=== PATIENT | male | born 1960 | race African-American/Black ===

== ENCOUNTER 2016-06-18 18:16 | Emergency (ER) | payer SELFPAY ==
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
[2016-06-18 19:52] LABS: ABSOLUTE EOSINOPHILS # (AUTO) 0.3 10^3/uL (0.0-0.6); ABSOLUTE LYMPHOCYTES (AUTO) 1.5 10^3/uL (0.5-4.7); ABSOLUTE MONOCYTES (AUTO) 0.6 10^3/uL (0.1-1.4); ABSOLUTE NEUT (AUTO) 2.4 10^3/uL (1.7-8.2); BASOPHILS % (AUTO) 0.8 % (0-2); EOSINOPHILS % (AUTO) 5.5 % (0-6); HEMATOCRIT 46.5 % (37.9-51.0); HEMOGLOBIN 15.4 g/dL (13.5-17.0); HGB HCT DIFFERENCE -0.3; LYMPHOCYTES % (AUTO) 30.7 % (13-45); MEAN CORPUSCULAR HEMOGLOBIN 29.5 pg (27.0-33.4); MEAN CORPUSCULAR HGB CONC 33.2 g/dL (32.0-36.0); MEAN CORPUSCULAR VOLUME 89 fl (80-97); MONOCYTES % (AUTO) 12.2 % (3-13); RED BLOOD COUNT 5.23 10^6/uL (4.35-5.55); RED CELL DISTRIBUTION WIDTH 13.7 % (11.5-14.0); SEGMENTED NEUTROPHILS % (AUTO) 50.8 % (42-78); WHITE BLOOD COUNT 4.7 10^3/uL (4.0-10.5)
[2016-06-18 20:06] LABS: ALANINE AMINOTRANSFERASE 36 U/L (21-72); ALBUMIN 4.4 g/dL (3.5-5.0); ALKALINE PHOSPHATASE 90 U/L (38-126); ANION GAP 12 (5-19); ASPARTATE AMINO TRANSFERASE 50 U/L (17-59); BILIRUBIN,DIRECT 0.5 mg/dL (0.0-0.4); BILIRUBIN,TOTAL 0.8 mg/dL (0.2-1.3); BLOOD UREA NITROGEN 13 mg/dL (7-20); CALCIUM 9.9 mg/dL (8.4-10.2); CARBON DIOXIDE 28 mmol/L (22-30); CHLORIDE 106 mmol/L (98-107); CREATININE RESULT 1.05 mg/dL (0.52-1.25); GLUCOSE 103 mg/dL (75-110); POTASSIUM 4.4 mmol/L (3.6-5.0); SODIUM 146.3 mmol/L (137-145); TOTAL PROTEIN 8.3 g/dL (6.3-8.2)
[2016-06-18 20:18] LABS: CREATINE KINASE MB 0.76 ng/mL (<4.55)
[2016-06-18 20:19] LABS: TROPONIN I < 0.012 ng/mL
[2016-06-18 21:23] VITALS: BP 143/86
--- NOTE | 2016-06-19 08:13 | EKG REPORT ---
SEVERITY:- NORMAL ECG - SINUS RHYTHM : Confirmed by: Job Baez MD 19-Jun-2016 08:12:15
== END 2016-06-18 21:05 | disposition home or self-care (01) ==
LOC: ER 18:16
DX: M54.10 Radiculopathy, site unspecified (principal); D86.9 Sarcoidosis, unspecified; M54.2 Cervicalgia; Z87.828 Personal history of other (healed) physical injury and trauma
CPT/HCPCS: 36415; 71020; 72050; 80053; 82550; 82553; 84484; 85025; 93005; 93010; 99285

== ENCOUNTER 2016-12-02 12:50 | Emergency (ER) | payer SELFPAY ==
[2016-12-02 13:29] VITALS: BP 115/85
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
== END 2016-12-02 15:12 | disposition left against medical advice (07) ==
LOC: ER 12:50
DX: M25.512 Pain in left shoulder (principal); G89.29 Other chronic pain; M79.602 Pain in left arm; F17.210 Nicotine dependence, cigarettes, uncomplicated
CPT/HCPCS: 99281

== ENCOUNTER 2017-01-06 05:45 | Inpatient (IN) | payer OTHER ==
[2017-01-06 07:09] LABS: HEMATOCRIT 48.6 % (37.9-51.0); HEMOGLOBIN 16.2 g/dL (13.5-17.0); MEAN CORPUSCULAR HGB CONC 33.3 g/dL (32.0-36.0); MEAN CORPUSCULAR VOLUME 87 fl (80-97); RED BLOOD COUNT 5.58 10^6/uL (4.35-5.55); RED CELL DISTRIBUTION WIDTH 13.5 % (11.5-14.0); WHITE BLOOD COUNT 20.1 10^3/uL (4.0-10.5)
[2017-01-06 07:19] LABS: APPEARANCE,URINE SLIGHTLY-CLOUDY; BILIRUBIN,URINE NEGATIVE (NEGATIVE); GLUCOSE, URINE NEGATIVE (NEGATIVE); KETONES,URINE NEGATIVE (NEGATIVE); LEUKOCYTE ESTERASE,URINE SMALL (NEGATIVE); NITRITE,URINE NEGATIVE (NEGATIVE); PROTEIN,URINE 100 mg/dL (NEGATIVE); URINE SPECIFIC GRAVITY 1.014
[2017-01-06 07:26] LABS: ALANINE AMINOTRANSFERASE 34 U/L (21-72); ALKALINE PHOSPHATASE 131 U/L (38-126); ANION GAP 17 (5-19); ASPARTATE AMINO TRANSFERASE 57 U/L (17-59); BILIRUBIN,TOTAL 2.7 mg/dL (0.2-1.3); BLOOD UREA NITROGEN 16 mg/dL (7-20); CALCIUM 9.5 mg/dL (8.4-10.2); CARBON DIOXIDE 23 mmol/L (22-30); CHLORIDE 101 mmol/L (98-107); CREATINE KINASE 55 U/L (55-170); CREATININE RESULT 1.37 mg/dL (0.52-1.25); GLUCOSE 107 mg/dL (75-110); POTASSIUM 4.8 mmol/L (3.6-5.0); SODIUM 140.7 mmol/L (137-145)
[2017-01-06] MEDS ORDERED: NORMAL SALINE 1000 ML 1,000 ML IV ONE (07:29)
[2017-01-06] MEDS ORDERED: IBUPROFEN 800 MG TABLET PO ONE (07:30)
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
[2017-01-06 07:44] LABS: BASOPHILS % (MANUAL) 0 % (0-2); EOSINOPHILS % (MANUAL) 0 % (0-6); LYMPHOCYTES % (MANUAL) 8 % (13-45); TOTAL CELLS COUNTED 100
[2017-01-06 07:45] LABS: TOXIC GRANULATION SLIGHT
[2017-01-06 07:46] LABS: RBC MORPHOLOGY COMMENT NORMO-CYTIC/CHROMIC
[2017-01-06] MEDS ORDERED: CIPROFLOXACIN 400 MG/D5W RTU 400 MG/200 ML RTUPB IV ONE (07:57)
[2017-01-06 08:09] LABS: PROTHROMBIN TIME 14.7 SEC (11.4-15.4)
--- NOTE | 2017-01-06 08:46 | RADIOLOGY REPORT (SQ) ---
EXAM DESCRIPTION: CHEST PA/LAT COMPLETED DATE/TIME: 01/06/2017 8:25 am REASON FOR STUDY: wheezing, cough COMPARISON: Chest films 07/08/2014, 06/18/2016 EXAM PARAMETERS: NUMBER OF VIEWS: two views TECHNIQUE: Digital Frontal and Lateral radiographic views of the chest acquired. RADIATION DOSE: NA LIMITATIONS: none FINDINGS: LUNGS AND PLEURA: No opacities, masses or pneumothorax. No pleural effusion. MEDIASTINUM AND HILAR STRUCTURES: No masses or contour abnormalities. HEART AND VASCULAR STRUCTURES: Heart normal size. No evidence for failure. BONES: No acute findings. HARDWARE: None in the chest. OTHER: No other significant finding. IMPRESSION: NO SIGNIFICANT RADIOGRAPHIC FINDING IN THE CHEST. TECHNICAL DOCUMENTATION: JOB ID: [id number] [email or web address]- All Rights Reserved
[2017-01-06 09:04] LABS: URINE BARBITURATES SCREEN NEGATIVE; URINE METHADONE SCREEN NEGATIVE; URINE OPIATES LOW NEGATIVE; URINE PHENCYCLIDINE SCREEN NEGATIVE
--- NOTE | 2017-01-06 09:05 | EKG REPORT ---
SEVERITY:- ABNORMAL ECG - SINUS TACHYCARDIA BORDERLINE T ABNORMALITIES, INFERIOR LEADS : Confirmed by: Deloris Wang 06-Jan-2017 09:05:04
[2017-01-06] MEDS ORDERED: CEFTRIAXONE 1 GM/D5W RTU 1 GM/50 ML RTUPB IV ONE (09:28)
[2017-01-06] MEDS ORDERED: NORMAL SALINE 1000 ML 1,000 ML IV PRN (09:28)
[2017-01-06] MEDS ORDERED: ONDANSETRON HCL INJ/PF 4 MG/2 ML SDV IV PRN (09:31)
--- NOTE | 2017-01-06 10:38 | PDOC H&P ---
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 He presented with 2 days history of generalized body aches, fever chills, urinary urgency and diarrhea. He notes that he has been having diffuse abdominal pain associated with right flank pain. The pain is sometimes up to 8/10. He informs me that he got cocaine from a friend to try to reduce the pain. He denies chest pain, shortness of breath, headache, any focal neurologic deficits. In the emergency room, temperature was 102.2, heart rate 112, respiratory rate 25. Sodium was 140 with potassium of 4.8, creatinine 1.4. WBC 20.1 with a left shift noted. EKG showed sinus tachycardia, and chest x-ray did not show any acute infiltrate per my personal review. He has received IV fluid boluses, and has been started on IV ciprofloxacin. Past Medical History Past Medical History: Questionable history of sarcoidosis Pulmonary Medical History: Denies: Tuberculosis Neurological Medical History: Reports: Migraine GI Medical History: Reports: Gastroesophageal Reflux Disease Musculoskeltal Medical History: Reports: Arthritis Past Surgical History Past Surgical History: Reports: Orthopedic Surgery - left ankle Denies: Pacemaker Social History Information Source: Patient, Emergency Med Personnel Lives with: Parents Smoking Status: Current Some Day Smoker Frequency of Alcohol Use: Social Hx Recreational Drug Use: No - He notes that he did use cocaine recently to try to treat his abdominal ney Hx Prescription Drug Abuse: No - Advance Directive Resuscitation Status: Full Code Surrogate healthcare decision maker:: mother Family History Family History: Arthritis, CAD, DM, Hyperlipidemia, Hypertension. denies: COPD , CVA, Malignancy, Thyroid Disfunction Parental Family History Reviewed: Yes Children Family History Reviewed: No Sibling(s) Family History Reviewed.: No Medication/Allergy Home Medications: Famotidine [Pepcid 20 mg Tablet] 20 mg PO Q12 04/12/11 Methylprednisolone [Medrol 4 mg Dosepack 21 Tab/Pack] 4 mg PO ASDIR PRN Tramadol HCl [Ultram 50 mg Tablet] 25 mg PO ASDIR PRN 04/12/11 Oxycodone HCl/Acetaminophen [Percocet 5-325 mg Tablet] 1 - 2 tab PO ASDIR PRN # 20 tablet 11/06/11 Penicillin V Potassium [Penicillin Vk 250 Mg Tablet] 250 mg PO QID #40 tablet Cyclobenzaprine HCl [Flexeril 10 Mg Tablet] 10 mg PO TID PRN #15 tablet Hydrocodone Bit/Acetaminophen [Vicodin 5-500 mg Tablet] 1 - 2 tab PO ASDIR PRN # 15 tablet 12/15/11 Ibuprofen [Motrin 800 Mg Tablet] 800 mg PO Q6H #20 tablet 01/20/12 Doxycycline Hyclate 100 mg PO BID #14 capsule 07/08/14 Methylprednisolone [Medrol 4 mg Dosepack 21 Tab/Pack] 4 mg PO ASDIR PRN #21 tab.ds.pk 06/18/16 Oxycodone HCl/Acetaminophen [Percocet 5-325 mg Tablet] 1 - 2 tab PO ASDIR PRN # 15 tablet 06/18/16 Allergies/Adverse Reactions: No Known Allergies Allergy (Verified 12/02/16 13:27) Review of Systems All systems: reviewed and no additional remarkable complaints except as stated Physical Exam Vital Signs: Temp Pulse Resp BP Pulse Ox 102.2 F H 114 H 24 H 123/64 92 01/06/17 07:54 01/06/17 07:54 01/06/17 09:05 01/06/17 09:05 01/06/17 09:05 Intake & Output 01/05/17 01/06/17 01/07/17 06:59 06:59 06:59 Weight 61.2 kg General appearance: PRESENT: cooperative, disheveled, mild distress, thin - Cachectic Head exam: PRESENT: atraumatic, normocephalic Eye exam: PRESENT: conjunctiva pink, EOMI, PERRLA Mouth exam: PRESENT: moist, neck supple, tongue midline Teeth exam: PRESENT: poor dentation Neck exam: PRESENT: full ROM. ABSENT: carotid bruit, JVD, lymphadenopathy, meningismus, tenderness, thyromegaly, tracheal deviation, tracheostomy, other Respiratory exam: PRESENT: rhonchi, symmetrical, tachypnea. ABSENT: accessory muscle use, chest wall tenderness, clear to auscultation anila, crackles, decreased breath sounds, prolonged expiratory phas, rales, retraction, stridor, unlabored, wheezes, other Cardiovascular exam: PRESENT: RRR, +S1, +S2, tachycardia. ABSENT: bradycardia, clicks, diastolic murmur, gallop, irregular rhythm, rubs, systolic murmur, other Pulses: PRESENT: normal carotid pulses, normal radial pulses, normal dorsalis pedis pul GI/Abdominal exam: PRESENT: normal bowel sounds, soft, other - Right flank tenderness. ABSENT: ascites, diminished bowel sounds, distended, firm, guarding , hernia, hyperactive bowel sounds, hypoactive bowel sounds, mass, Rust's sign , organolmegaly, rebound, rigid, tenderness Rectal exam: PRESENT: deferred Extremities exam: PRESENT: full ROM. ABSENT: calf tenderness, clubbing, joint swelling, pedal edema, tenderness, +1 edema, +2 edema, other Musculoskeletal exam: PRESENT: ambulatory, full ROM, normal inspection Neurological exam: PRESENT: awake, oriented to person, oriented to place, oriented to time, oriented to situation, reflexes normal, CN II-XII grossly intact, other - Sick looking Psychiatric exam: PRESENT: anxious Skin exam: PRESENT: dry, normal color, warm Results Laboratory Results: 01/06/17 06:35 01/06/17 06:35 01/06/17 01/06/17 01/06/17 06:35 06:35 06:35 WBC 20.1 H RBC 5.58 H Hgb 16.2 Hct 48.6 MCV 87 MCH 29.0 MCHC 33.3 RDW 13.5 Plt Count 181 Seg Neutrophils % Not Reportable Lymphocytes % Not Reportable Monocytes % Not Reportable Eosinophils % Not Reportable Basophils % Not Reportable Absolute Neutrophils Not Reportable Absolute Lymphocytes Not Reportable Absolute Monocytes Not Reportable Absolute Eosinophils Not Reportable Absolute Basophils Not Reportable Sodium 140.7 Potassium 4.8 Chloride 101 Carbon Dioxide 23 Anion Gap 17 BUN 16 Creatinine 1.37 H Est GFR ( Amer) > 60 Est GFR (Non-Af Amer) 53 L Glucose 107 Lactic Acid Calcium 9.5 Total Bilirubin 2.7 H AST 57 ALT 34 Alkaline Phosphatase 131 H Total Protein 8.0 Albumin 4.0 Urine Color LEYLA Urine Appearance SLIGHTLY-CLOUDY Urine pH 6.0 Ur Specific [place] 1.014 Urine Protein 100 H Urine Glucose (UA) NEGATIVE Urine Ketones NEGATIVE Urine Blood SMALL H Urine Nitrite NEGATIVE Ur Leukocyte Esterase SMALL H Urine WBC (Auto) 113 Urine RBC (Auto) 14 01/06/17 08:20 WBC RBC Hgb Hct MCV MCH MCHC RDW Plt Count Seg Neutrophils % Lymphocytes % Monocytes % Eosinophils % Basophils % Absolute Neutrophils Absolute Lymphocytes Absolute Monocytes Absolute Eosinophils Absolute Basophils Sodium Potassium Chloride Carbon Dioxide Anion Gap BUN Creatinine Est GFR ( Amer) Est GFR (Non-Af Amer) Glucose Lactic Acid 1.3 Calcium Total Bilirubin AST ALT Alkaline Phosphatase Total Protein Albumin Urine Color Urine Appearance Urine pH Ur Specific [place] Urine Protein Urine Glucose (UA) Urine Ketones Urine Blood Urine Nitrite Ur Leukocyte Esterase Urine WBC (Auto) Urine RBC (Auto) 01/06/17 06:35 Creatine Kinase 55 Urine analysis revealed WBC 113 with small leukocyte esterase and negative nitrites Impressions: Chest X-Ray 01/06/17 07:30 IMPRESSION: NO SIGNIFICANT RADIOGRAPHIC FINDING IN THE CHEST. Status: Image reviewed by me Assessment & Plan - Diagnosis (1) Urinary tract infection Qualifiers: Urinary tract infection type: acute pyelonephritis Qualified Code(s): N10 - Acute pyelonephritis Is this a current diagnosis for this admission?: Yes Plan: Urinary tract infection with sepsis. Urine analysis consistent with UTI. Has significant right flank pain. Remains febrile with significant leukocytosis. Lactic acid within normal limits. Will start on IV ceftriaxone and follow blood cultures. Abdominal pelvic CT scan pending (2) Sepsis Qualifiers: Sepsis type: sepsis due to unspecified organism Qualified Code(s): A41.9 - Sepsis, unspecified organism Is this a current diagnosis for this admission?: Yes Plan: See above (3) Acute kidney injury Is this a current diagnosis for this admission?: Yes Plan: AK I, nonoliguric, likely due to sepsis. Continue IV fluid resuscitation (4) Abdominal pain Qualifiers: Abdominal location: generalized Qualified Code(s): R10.84 - Generalized abdominal pain Is this a current diagnosis for this admission?: Yes Plan: Diffuse abdominal pain associated with right flank tenderness. Likely due to pyelonephritis. Liver function tests, lipase amylase, and abdominal pelvic CT scan pending. Continue current pain management (5) Tobacco abuse Is this a current diagnosis for this admission?: Yes Plan: Smoking cessation counseling provided. Will provide nicotine replacement therapy (6) Cocaine abuse Is this a current diagnosis for this admission?: Yes Plan: Admits to using cocaine recently for abdominal pain. Further substance abuse strongly discouraged (7) DVT prophylaxis Is this a current diagnosis for this admission?: Yes Plan: Subcutaneous Lovenox - Time Time Spent: Greater than 70 Minutes - I have reviewed the diagnosis, prognosis, plan of care with the patient. I have addressed his concerns and answered his questions. He has expressed a clear understanding of this plan of care Smoking Cessation Education: 3 to 10 minutes Medications reviewed and adjusted accordingly: Yes Anticipated discharge: Home Within: within 48 hours - Inpatient Certification Based on my medical assessment, after consideration of the patient's comorbidities, presenting symptoms, or acuity I expect that the services needed warrant INPATIENT care.: Yes I certify that my determination is in accordance with my understanding of Medicare's requirements for reasonable and necessary INPATIENT services [42 CFR 412.3e].: Yes Medical Necessity: Need For IV Fluids, Need for IV Antibiotics, Risk of Complication if Not Cared For in Hospital - Plan Summary Plan Summary: We will admit for IV antibiotics and IV fluids.
[2017-01-06] MEDS ORDERED: MORPHINE SULFATE 10 MG/ML INJ IV PRN (10:41)
[2017-01-06 11:20] LABS: LIPASE 94.7 U/L (23-300)
[2017-01-06] MEDS: CYCLOBENZAPRINE HCL 10 MG TABLET PO PRN ×3 (11:31→17:16)
[2017-01-06] MEDS: ENOXAPARIN SODIUM INJ 40 MG/0.4 ML DISP.SYRIN SUBCUT SCH (11:32)
[2017-01-06] MEDS: OXYCODONE-ACETAMINOPHEN 5-325 MG TABLET PO PRN ×3 (11:32→23:13)
[2017-01-06 12:22] LABS: ADD HIVPANEL? NO; HIV (1 AND 2) ANTIBODY NEGATIVE (NEGATIVE)
[2017-01-06] MEDS ORDERED: INFLUENZA ADLT QUAD (36MOS+) 2017-18 VAC 0.5 ML SYR IM PRN (13:57)
--- NOTE | 2017-01-06 16:08 | RADIOLOGY REPORT (SQ) ---
EXAM DESCRIPTION: CT ABD/PELVIS WITH IV ORAL COMPLETED DATE/TIME: 01/06/2017 3:46 pm REASON FOR STUDY: abdominal pain COMPARISON: None. TECHNIQUE: CT scan of the abdomen and pelvis performed with intravenous and oral contrast using sulma fred scanning technique with dynamic intravenous contrast injection. Images reviewed with lung, soft t issue, and bone windows. Reconstructed coronal and sagittal MPR images reviewed. Delayed images for e valuation of the urinary system also acquired. All images stored on PACS. All CT scanners at this facility use dose modulation, iterative reconstruction, and/or weight based d osing when appropriate to reduce radiation dose to as low as reasonably achievable (ALARA). [facility]: Dose Right [facility]: CareDose [facility]: Dose Right [facility]: Teradose 4D [facility]: FClub CONTRAST TYPE AND DOSE: contrast/concentration: Isovue 370.00 mg/ml; Total Contrast Delivered: 66.0 ml; Total Saline Delivered: 42.0 ml RENAL FUNCTION: BUN 16 creatinine 1.4 RADIATION DOSE: Up-to-date CT equipment and radiation dose reduction techniques were employed. CTDIv ol: 2.8 - 3.2 mGy. DLP: 319 mGy-cm.. LIMITATIONS: Patient motion. Positioning. FINDINGS: LOWER CHEST: No significant findings. No nodules or infiltrates. LIVER: Normal size. No masses. No dilated ducts. SPLEEN: Normal size. No focal lesions. PANCREAS: No masses. No significant calcifications. No adjacent inflammation or peripancreatic fluid collections. Pancreatic duct not dilated. GALLBLADDER: Gallstones. No inflammatory changes to suggest cholecystitis. ADRENAL GLANDS: No significant masses or asymmetry. RIGHT KIDNEY AND URETER: No solid masses. No significant calcification. No hydronephrosis or hydroure ter. LEFT KIDNEY AND URETER: No solid masses. No significant calcification. No hydronephrosis or hydrouret er. AORTA AND VESSELS: No aneurysm. RETROPERITONEUM: Enlarged nodes measuring up to about 1 cm in short axis. BOWEL AND PERITONEAL CAVITY: Central mesenteric nodes measuring up to about 1.0 cm in short axis asso ciated with a swirling pattern of the vasculature in the SMA branches. No evidence of obstruction. No ascites or free air. APPENDIX: Not visualized. PELVIS: No significant masses. Normal bladder. No free fluid. ABDOMINAL WALL: Anterior pelvic hernia repair. BONES: No significant or acute findings. OTHER: No other significant finding. IMPRESSION: 1. Cholelithiasis. 2. Mild mesenteric and retroperitoneal adenopathy, nonspecific. 3. Swirling pattern of the vasculature in the SMA branches, possibly a normal variant. No other evid ence of internal hernia. TECHNICAL DOCUMENTATION: JOB ID: [id number] Quality ID # [id number]: Final reports with documentation of one or more dose reduction techniques (e.g., Au tomated exposure control, adjustment of the mA and/or kV according to patient size, use of iterative reconstruction technique) 2010 [employer]- All Rights Reserved
[2017-01-06] MEDS: FAMOTIDINE 20 MG TABLET PO SCH ×2 (17:08→22:28)
[2017-01-06] MEDS ORDERED: CYCLOBENZAPRINE HCL 10 MG TABLET PO PRN (21:37)
[2017-01-06] MEDS: IMIPENEM/CILASTATIN SODIUM 500 MG in NORMAL SALINE 100 ML IV SCH (22:28)
[2017-01-07] MEDS ORDERED: IMIPENEM/CILASTATIN SODIUM 1,000 MG in NORMAL SALINE 250 ML IV SCH ×2
[2017-01-07 05:09] LABS: HEMOGLOBIN 14.4 g/dL (13.5-17.0); HGB HCT DIFFERENCE -0.8; MEAN CORPUSCULAR HEMOGLOBIN 28.9 pg (27.0-33.4); MEAN CORPUSCULAR HGB CONC 32.8 g/dL (32.0-36.0); MEAN CORPUSCULAR VOLUME 88 fl (80-97); RED CELL DISTRIBUTION WIDTH 13.5 % (11.5-14.0); WHITE BLOOD COUNT 19.1 10^3/uL (4.0-10.5)
[2017-01-07] MEDS: ACETAMINOPHEN 325 MG TABLET PO PRN ×3 (05:25→17:26)
[2017-01-07] MEDS: IMIPENEM/CILASTATIN SODIUM 500 MG in NORMAL SALINE 100 ML IV SCH (05:25)
[2017-01-07] MEDS: OXYCODONE-ACETAMINOPHEN 5-325 MG TABLET PO PRN ×3 (05:25→17:26)
[2017-01-07 05:36] LABS: ALANINE AMINOTRANSFERASE 29 U/L (21-72); ALBUMIN 2.9 g/dL (3.5-5.0); ALKALINE PHOSPHATASE 88 U/L (38-126); ANION GAP 12 (5-19); ASPARTATE AMINO TRANSFERASE 45 U/L (17-59); BAND NEUTROPHILS % (MANUAL) 9 % (3-5); BASOPHILS % (MANUAL) 0 % (0-2); BILIRUBIN,DIRECT 1.6 mg/dL (0.0-0.4); BLOOD UREA NITROGEN 14 mg/dL (7-20); CALCIUM 8.4 mg/dL (8.4-10.2); CARBON DIOXIDE 22 mmol/L (22-30); CHLORIDE 108 mmol/L (98-107); CREATININE RESULT 1.14 mg/dL (0.52-1.25); EOSINOPHILS % (MANUAL) 0 % (0-6); GLUCOSE 91 mg/dL (75-110); LYMPHOCYTES % (MANUAL) 10 % (13-45); POTASSIUM 4.7 mmol/L (3.6-5.0); SODIUM 141.9 mmol/L (137-145); TOTAL CELLS COUNTED 100; TOTAL PROTEIN 6.4 g/dL (6.3-8.2)
[2017-01-07 05:37] LABS: POIKILOCYTOSIS SLIGHT; TEAR DROP CELLS SLIGHT; TOXIC GRANULATION SLIGHT; TOXIC VACUOLATION PRESENT
[2017-01-07] MEDS: ENOXAPARIN SODIUM INJ 40 MG/0.4 ML DISP.SYRIN SUBCUT SCH (09:52)
--- NOTE | 2017-01-07 09:54 | PDOC PROGRESS REPORT ---
Subjective Progress Note for:: 01/07/17 Subjective:: He is still experiencing chills at night. He also has back pain. He is able to eat. He is not nauseated. Does not report abdominal pain. Physical Exam Vital Signs: Temp Pulse Resp BP Pulse Ox 101.8 F H 102 H 19 92/47 L 94 01/07/17 07:46 01/07/17 07:46 01/07/17 07:46 01/07/17 07:46 01/07/17 07:46 Intake & Output 01/06/17 01/07/17 01/08/17 06:59 06:59 06:59 Intake Total 2916 Output Total 1100 Balance 1816 General appearance: PRESENT: no acute distress, cooperative, thin Head exam: PRESENT: atraumatic, normocephalic Eye exam: PRESENT: EOMI, PERRLA Mouth exam: PRESENT: moist, tongue midline Neck exam: ABSENT: carotid bruit, JVD, lymphadenopathy, thyromegaly Respiratory exam: PRESENT: clear to auscultation anila. ABSENT: rales, rhonchi, wheezes Cardiovascular exam: PRESENT: RRR. ABSENT: diastolic murmur, rubs, systolic murmur GI/Abdominal exam: PRESENT: normal bowel sounds, soft. ABSENT: distended, guarding, mass, organolmegaly, rebound, tenderness Rectal exam: PRESENT: deferred Extremities exam: PRESENT: full ROM. ABSENT: calf tenderness, clubbing, pedal edema Musculoskeletal exam: PRESENT: ambulatory Neurological exam: PRESENT: alert, awake, oriented to person, oriented to place , oriented to time, oriented to situation, CN II-XII grossly intact. ABSENT: motor sensory deficit Psychiatric exam: PRESENT: appropriate affect, normal mood. ABSENT: homicidal ideation, suicidal ideation Skin exam: PRESENT: dry, intact, warm. ABSENT: cyanosis, rash Results Laboratory Results: 01/07/17 04:26 01/07/17 04:26 01/07/17 01/07/17 04:26 04:26 WBC 19.1 H RBC 5.00 Hgb 14.4 Hct 44.0 MCV 88 MCH 28.9 MCHC 32.8 RDW 13.5 Plt Count 149 L Seg Neutrophils % Not Reportable Lymphocytes % Not Reportable Monocytes % Not Reportable Eosinophils % Not Reportable Basophils % Not Reportable Absolute Neutrophils Not Reportable Absolute Lymphocytes Not Reportable Absolute Monocytes Not Reportable Absolute Eosinophils Not Reportable Absolute Basophils Not Reportable Sodium 141.9 Potassium 4.7 Chloride 108 H Carbon Dioxide 22 Anion Gap 12 BUN 14 Creatinine 1.14 Est GFR ( Amer) > 60 Est GFR (Non-Af Amer) > 60 Glucose 91 Calcium 8.4 Total Bilirubin 2.0 H AST 45 ALT 29 Alkaline Phosphatase 88 Total Protein 6.4 Albumin 2.9 L 01/06/17 01/06/17 01/06/17 10:56 16:20 22:37 Troponin I < 0.012 < 0.012 < 0.012 Impressions: Chest X-Ray 01/06/17 07:30 IMPRESSION: NO SIGNIFICANT RADIOGRAPHIC FINDING IN THE CHEST. Abdomen/Pelvis CT 01/06/17 10:39 IMPRESSION: 1. Cholelithiasis. 2. Mild mesenteric and retroperitoneal adenopathy, nonspecific. 3. Swirling pattern of the vasculature in the SMA branches, possibly a normal variant. No other evidence of internal hernia. Assessment & Plan - Diagnosis (1) Acute kidney injury Is this a current diagnosis for this admission?: Yes Plan: This was most likely due to volume depletion. He has been treated with IV fluids, and now his LATOYA has resolved. (2) Sepsis Qualifiers: Sepsis type: sepsis due to unspecified organism Qualified Code(s): A41.9 - Sepsis, unspecified organism Is this a current diagnosis for this admission?: Yes Plan: Due to UTI/pyelonephritis. His vital signs have normalized. He still has an elevated white blood cell count. His blood cultures are growing gram-negative rods. Identification and sensitivities are pending. Continue ceftriaxone. (3) Acute pyelonephritis Is this a current diagnosis for this admission?: Yes Plan: He has uncomplicated polynephritis. This is based on his urinary tract infection, plus fever and back pain. CT abdomen did not show any gross abnormalities. Incidentally, gallstones were found. (4) Gram-negative bacteremia Plan: Most likely due to the UTI/pyelonephritis that he has. Identification and sensitivities are pending. (5) Cocaine abuse Is this a current diagnosis for this admission?: Yes Plan: Encouraged to abstain. (6) Tobacco abuse Is this a current diagnosis for this admission?: Yes Plan: Encourage patient to quit. (7) Cholelithiasis Qualifiers: Cholelithiasis location: gallbladder Cholecystitis presence: without cholecystitis Biliary obstruction: without biliary obstruction Qualified Code(s): K80.20 - Calculus of gallbladder without cholecystitis without obstruction Plan: Incidental finding seen on CT scan of his abdomen. Currently he is asymptomatic. - Time Time Spent with patient: 25-34 minutes Smoking Cessation Education: 3 to 10 minutes Medications reviewed and adjusted accordingly: Yes Anticipated discharge: Home Within: within 24 hours
[2017-01-07] MEDS ORDERED: ONDANSETRON HCL INJ/PF 4 MG/2 ML SDV IV PRN (10:00)
[2017-01-07] MEDS: FAMOTIDINE 20 MG TABLET PO SCH ×2 (10:22→22:58)
[2017-01-07] MEDS: CEFTRIAXONE 1 GM/D5W RTU 1 GM/50 ML RTUPB IV SCH (10:22)
[2017-01-07] MEDS: NICOTINE 21 MG/24 HR PATCH.TD24 TD SCH (10:23)
[2017-01-08] MEDS: OXYCODONE-ACETAMINOPHEN 5-325 MG TABLET PO PRN ×4 (00:23→23:26)
[2017-01-08] MEDS: ACETAMINOPHEN 325 MG TABLET PO PRN ×3 (00:24→14:11)
[2017-01-08 06:23] LABS: HEMATOCRIT 41.9 % (37.9-51.0); HGB HCT DIFFERENCE 0.1; MEAN CORPUSCULAR HEMOGLOBIN 29.2 pg (27.0-33.4); MEAN CORPUSCULAR HGB CONC 33.5 g/dL (32.0-36.0); MEAN CORPUSCULAR VOLUME 87 fl (80-97); RED CELL DISTRIBUTION WIDTH 13.8 % (11.5-14.0); WHITE BLOOD COUNT 10.3 10^3/uL (4.0-10.5)
[2017-01-08 06:47] LABS: ALANINE AMINOTRANSFERASE 30 U/L (21-72); ALBUMIN 2.7 g/dL (3.5-5.0); ALKALINE PHOSPHATASE 97 U/L (38-126); ANION GAP 11 (5-19); ASPARTATE AMINO TRANSFERASE 44 U/L (17-59); BILIRUBIN,DIRECT 1.2 mg/dL (0.0-0.4); BILIRUBIN,TOTAL 1.2 mg/dL (0.2-1.3); BLOOD UREA NITROGEN 13 mg/dL (7-20); CALCIUM 8.5 mg/dL (8.4-10.2); CARBON DIOXIDE 25 mmol/L (22-30); CHLORIDE 106 mmol/L (98-107); CREATININE RESULT 1.12 mg/dL (0.52-1.25); GLUCOSE 97 mg/dL (75-110); POTASSIUM 4.5 mmol/L (3.6-5.0); SODIUM 142.3 mmol/L (137-145); TOTAL PROTEIN 6.2 g/dL (6.3-8.2)
[2017-01-08 06:57] LABS: BAND NEUTROPHILS % (MANUAL) 9 % (3-5); BASOPHILS % (MANUAL) 0 % (0-2); EOSINOPHILS % (MANUAL) 2 % (0-6); LYMPHOCYTES % (MANUAL) 16 % (13-45); TOTAL CELLS COUNTED 100
[2017-01-08 06:58] LABS: BURR CELLS SLIGHT; POIKILOCYTOSIS SLIGHT; TOXIC GRANULATION SLIGHT; TOXIC VACUOLATION PRESENT
[2017-01-08] MEDS: NICOTINE 21 MG/24 HR PATCH.TD24 TD SCH (09:02)
[2017-01-08] MEDS: ENOXAPARIN SODIUM INJ 40 MG/0.4 ML DISP.SYRIN SUBCUT SCH (09:03)
[2017-01-08] MEDS: CEFTRIAXONE 1 GM/D5W RTU 1 GM/50 ML RTUPB IV SCH (09:12)
[2017-01-08] MEDS: FAMOTIDINE 20 MG TABLET PO SCH ×2 (09:15→21:46)
--- NOTE | 2017-01-08 16:29 | PDOC PROGRESS REPORT ---
Subjective Progress Note for:: 01/08/17 Subjective:: He complains of flank pain. Overall, he still feels miserable. Physical Exam Vital Signs: Temp Pulse Resp BP Pulse Ox 99.2 F 107 H 18 101/66 97 01/08/17 16:14 01/08/17 16:14 01/08/17 16:14 01/08/17 16:14 01/08/17 16:14 Intake & Output 01/07/17 01/08/17 01/09/17 06:59 06:59 06:59 Intake Total 2916 3805 Output Total 1100 2105 Balance 1816 1700 Weight 69.1 kg General appearance: PRESENT: no acute distress, well-developed, well-nourished Head exam: PRESENT: atraumatic, normocephalic Respiratory exam: PRESENT: clear to auscultation anila. ABSENT: rales, rhonchi, wheezes Cardiovascular exam: PRESENT: RRR. ABSENT: diastolic murmur, rubs, systolic murmur GI/Abdominal exam: PRESENT: normal bowel sounds, soft. ABSENT: distended, guarding, mass, organolmegaly, rebound, tenderness Musculoskeletal exam: PRESENT: other - Mild right costophrenic tenderness Neurological exam: PRESENT: alert, awake, oriented to person, oriented to place , oriented to time, oriented to situation, CN II-XII grossly intact. ABSENT: motor sensory deficit Skin exam: PRESENT: dry, intact, warm. ABSENT: cyanosis, rash Results Laboratory Results: 01/08/17 05:18 01/08/17 05:18 01/08/17 01/08/17 05:18 05:18 WBC 10.3 RBC 4.80 Hgb 14.0 Hct 41.9 MCV 87 MCH 29.2 MCHC 33.5 RDW 13.8 Plt Count 131 L Seg Neutrophils % Not Reportable Lymphocytes % Not Reportable Monocytes % Not Reportable Eosinophils % Not Reportable Basophils % Not Reportable Absolute Neutrophils Not Reportable Absolute Lymphocytes Not Reportable Absolute Monocytes Not Reportable Absolute Eosinophils Not Reportable Absolute Basophils Not Reportable Sodium 142.3 Potassium 4.5 Chloride 106 Carbon Dioxide 25 Anion Gap 11 BUN 13 Creatinine 1.12 Est GFR ( Amer) > 60 Est GFR (Non-Af Amer) > 60 Glucose 97 Calcium 8.5 Total Bilirubin 1.2 AST 44 ALT 30 Alkaline Phosphatase 97 Total Protein 6.2 L Albumin 2.7 L 01/06/17 01/06/17 01/06/17 10:56 16:20 22:37 Troponin I < 0.012 < 0.012 < 0.012 Impressions: Chest X-Ray 01/06/17 07:30 IMPRESSION: NO SIGNIFICANT RADIOGRAPHIC FINDING IN THE CHEST. Abdomen/Pelvis CT 01/06/17 10:39 IMPRESSION: 1. Cholelithiasis. 2. Mild mesenteric and retroperitoneal adenopathy, nonspecific. 3. Swirling pattern of the vasculature in the SMA branches, possibly a normal variant. No other evidence of internal hernia. Assessment & Plan - Diagnosis (1) Acute kidney injury Is this a current diagnosis for this admission?: Yes Plan: This was most likely due to volume depletion. He has been treated with IV fluids, and now his LATOYA has resolved. (2) Sepsis Qualifiers: Sepsis type: Escherichia coli Qualified Code(s): A41.51 - Sepsis due to Escherichia coli [E. coli] Is this a current diagnosis for this admission?: Yes Plan: Due to UTI/pyelonephritis. His vital signs have normalized. His white count normalized. But he is still spiking fevers. His blood cultures are growing E. coli. Continue ceftriaxone. (3) Acute pyelonephritis Is this a current diagnosis for this admission?: Yes Plan: He has uncomplicated polynephritis. This is based on his urinary tract infection, plus fever and back pain. CT abdomen did not show any gross abnormalities. Incidentally, gallstones were found. Cultures are growing E. coli. His white count has normalized. However, he continues to spike fevers. Continue ceftriaxone for now. (4) Gram-negative bacteremia Plan: Most likely due to the UTI/pyelonephritis that he has. Cultures are now growing E. coli. in both urine and blood. (5) Cocaine abuse Is this a current diagnosis for this admission?: Yes Plan: Encouraged to abstain. (6) Tobacco abuse Is this a current diagnosis for this admission?: Yes Plan: Encourage patient to quit. (7) Cholelithiasis Qualifiers: Cholelithiasis location: gallbladder Cholecystitis presence: without cholecystitis Biliary obstruction: without biliary obstruction Qualified Code(s): K80.20 - Calculus of gallbladder without cholecystitis without obstruction Plan: Incidental finding seen on CT scan of his abdomen. Currently he is asymptomatic. - Time Time Spent with patient: 15-24 minutes Medications reviewed and adjusted accordingly: Yes Anticipated discharge: Home - Inpatient Certification Based on my medical assessment, after consideration of the patient's comorbidities, presenting symptoms, or acuity I expect that the services needed warrant INPATIENT care.: Yes I certify that my determination is in accordance with my understanding of Medicare's requirements for reasonable and necessary INPATIENT services [42 CFR 412.3e].: Yes Medical Necessity: Need for IV Antibiotics
[2017-01-09] MEDS: OXYCODONE-ACETAMINOPHEN 5-325 MG TABLET PO PRN ×3 (08:01→22:39)
[2017-01-09] MEDS: NICOTINE 21 MG/24 HR PATCH.TD24 TD SCH (09:54)
[2017-01-09] MEDS: CEFTRIAXONE 1 GM/D5W RTU 1 GM/50 ML RTUPB IV SCH (09:54)
[2017-01-09] MEDS: ENOXAPARIN SODIUM INJ 40 MG/0.4 ML DISP.SYRIN SUBCUT SCH (09:55)
[2017-01-09] MEDS: FAMOTIDINE 20 MG TABLET PO SCH ×2 (09:55→21:04)
[2017-01-09] MEDS: ACETAMINOPHEN 325 MG TABLET PO PRN (10:03)
--- NOTE | 2017-01-09 15:23 | PROGRESS NOTE E ---
Progress Note NAME: LEOPOLDO LEE : 1960 AGE: 56Y DATE: 01/09/2017 ROOM: 435 SUBJECTIVE: The patient is a 56-year-old male who has a past medical history of cocaine abuse, tobacco abuse , admitted with sepsis due to acute pyelonephritis. He is on antibiotics now, feeling better, but still complaining of pain. OBJECTIVE: GENERAL: The patient is lying in bed, not in distress. VITAL SIGNS: Blood pressure is 152/81, temperature 102, respiratory rate 18, saturation 96%. HEENT: Head normocephalic, atraumatic. Pupils round, reactive to light and accommodation bilaterally. Extraocular movements intact. Ears: Tympanic membranes intact bilaterally. No discharge from the ear. No discharge from the nose. NECK: Supple, no increased JVD, no thyromegaly, no lymphadenopathy. CARDIOVASCULAR: Normal S1, S2. Regular rate and rhythm. No murmur, no gallops. RESPIRATORY: Lungs clear. ABDOMEN: Soft. MUSCULOSKELETAL: No edema. NEUROLOGIC: Awake, alert. SKIN: No rash. LABORATORY DATA: White blood count is 10, hemoglobin 14. Sodium 142, potassium 4.5, creatinine 1.1. ASSESSMENT: 1. SEPSIS SECONDARY TO PYELONEPHRITIS ON CEFTRIAXONE. 2. ACUTE KIDNEY INJURY, RESOLVED. 3. SEPSIS SUBACUTE SECONDARY TO PYELONEPHRITIS FROM UTI. NEGATIVE BACTEREMIA. Continue ceftriaxone. 4. COCAINE ABUSE. MEDICAL NECESSITY: The patient needs IV antibiotics. I will change ceftriaxone to Zosyn. DICTATING PHYSICIAN: MEHNAZ SUE M.D. [id number] ACEY#: [id number] ID: [id number] JOB#: [id number] ACCT: [id number] cc: > MTDD
[2017-01-09] MEDS: PIPERACILLIN SODIUM/TAZOBACTAM 3.375 GM in NORMAL SALINE 100 ML IV SCH (18:01)
[2017-01-10] MEDS: PIPERACILLIN SODIUM/TAZOBACTAM 3.375 GM in NORMAL SALINE 100 ML IV SCH ×5 (00:48→23:30)
[2017-01-10] MEDS: OXYCODONE-ACETAMINOPHEN 5-325 MG TABLET PO PRN ×3 (06:39→20:21)
[2017-01-10] MEDS: NICOTINE 21 MG/24 HR PATCH.TD24 TD SCH (10:28)
[2017-01-10] MEDS: FAMOTIDINE 20 MG TABLET PO SCH ×2 (10:28→21:08)
[2017-01-10] MEDS: ENOXAPARIN SODIUM INJ 40 MG/0.4 ML DISP.SYRIN SUBCUT SCH (10:32)
--- NOTE | 2017-01-10 12:13 | PROGRESS NOTE E ---
Progress Note NAME: LEOPOLDO LEE : 1960 AGE: 56Y DATE: 01/10/2017 ROOM: 435 SUBJECTIVE: The patient is a pleasant 56-year-old male who has a past medical history of cocaine abuse, tobacco abuse. Admitted with pyelonephritis and sepsis. He still continues to have fever despite he is on antibiotic. He is on now Zosyn. OBJECTIVE: GENERAL: The patient is lying in bed. Not in distress. VITALS SIGNS: Temperature maximum is 101, heart rate 89, saturation is 97% on room air, blood pressure is 104/62. HEENT: Head normocephalic, atraumatic. Pupils round and reactive to light and accommodation bilaterally. Extraocular movements intact. Ears: Tympanic membranes intact bilaterally. No discharge from the ears. No discharge from the nose. NECK: Supple. No increased JVD. No thyromegaly. No lymphadenopathy. CARDIOVASCULAR: Normal S1, S2. Regular rate and rhythm. No murmur. No gallop. RESPIRATORY: Lungs are clear. ABDOMEN: Soft and nontender. MUSCULOSKELETAL: No edema. NEUROLOGIC: Awake, alert. SKIN: No rash. LABORATORY: White blood count is 10, hemoglobin is 14, hematocrit is 41. Creatinine is 1.1, sodium is 142. ASSESSMENT: 1. SEPSIS SECONDARY TO PYELONEPHRITIS. Continue Zosyn. 2. ACUTE KIDNEY INJURY RESOLVED. 3. SEPSIS SECONDARY TO PYELONEPHRITIS FROM UTI. Gram negative bacteremia. On Unasyn and Zosyn. 4. COCAINE ABUSE. PLAN: Continue IV antibiotics. We will order echocardiogram. MEDICAL NECESSITY: The patient is on IV antibiotics. DICTATING PHYSICIAN: MEHNAZ SUE M.D. [id number] PHY#: [id number] ID: [id number] JOB#: [id number] ACCT: [id number] cc: >
--- NOTE | 2017-01-10 16:16 | XCELERA REPORT ---
[address] [address] Transthoracic Echocardiogram Report Name: LEOPOLDO LEE Age: 56 yrs Gender: Male : 1960 Patient Status: Inpatient Patient Location: [address] [place] [address] Study Date: 01/10/2017 03:12 PM Height: 66 in Weight: 152 lb BSA: 1.8 m2 Procedure: A complete two-dimensional transthoracic echocardiogram was performed (2D, M-mode, spectral and color flow Doppler). The study was technically adequate with some images being suboptimal in quality. [facility] Ordering Physician: MEHNAZ SUE Performed By: Halina Hampton Interpretation Summary The left ventricular ejection fraction is normal. There is borderline concentric left ventricular hypertrophy. Doppler measurements suggest pseudonormalized left ventricular relaxation, which is associated with grade II/IV or mild to moderate diastolic dysfunction The left ventricle is grossly normal size. Wall motion cannot be accurately commented on, but no definite regional wall motion abnormalities noted. The right ventricle is borderline dilated. The right ventricular systolic function is normal. The right atrium is mildly dilated. The left atrial size is normal. There is a trace amount of mitral regurgitation There is no mitral valve stenosis. No aortic regurgitation is present. There is no aortic valve stenosis There is a trace to mild amount of tricuspid regurgitation There is mild pulmonary hypertension by echo Right ventricular systolic pressure is estimated to be elevated at 30- 40mmHg. The aortic root is not well visualized but is probably normal size. The inferior vena cava appeared normal and decreased > 50% with respiration (RAP 5-10 mmHg) There is no pericardial effusion. No definite vegetations noted but if clinical suspicion is high, then consider FRANK and multiple blood cultures. MMode/2D Measurements & Calculations RVDd: 2.8 cm LVIDd: 4.7 cm FS: 37.3 % Ao root diam: 3.1 cm IVSd: 0.93 cm LVIDs: 3.0 cm EDV(Teich): 104.7 ml LVPWd: 0.87 cm ESV(Teich): 34.3 ml Ao root area: 7.6 cm2 EF(Teich): 67.2 % LA dimension: 3.3 cm Doppler Measurements & Calculations MV E max quinn: MV P1/2t max quinn: Ao V2 max: LV V1 max P.9 cm/sec 80.9 cm/sec 90.3 cm/sec 2.9 mmHg MV A max quinn: MV P1/2t: 74.0 msec Ao max PG: LV V1 max: 70.6 cm/sec 3.3 mmHg 83.9 cm/sec MV E/A: 1.1 MVA(P1/2t): 3.0 cm2 MV dec slope: 320.4 cm/sec2 TR max quinn: 272.8 cm/sec TR max P.8 mmHg Left Ventricle The left ventricle is grossly normal size. There is borderline concentric left ventricular hypertrophy. The left ventricular ejection fraction is normal. Doppler measurements suggest pseudonormalized left ventricular relaxation, which is associated with grade II/IV or mild to moderate diastolic dysfunction. Wall motion cannot be accurately commented on, but no definite regional wall motion abnormalities noted. Right Ventricle The right ventricle is borderline dilated. There is normal right ventricular wall thickness. The right ventricular systolic function is normal. Atria The right atrium is mildly dilated. The left atrial size is normal. Interarterial septum not well visualized and not well dopplered. Cannot comment on ASD/PFO presence. Mitral Valve The mitral valve is grossly normal. There is no mitral valve stenosis. There is a trace amount of mitral regurgitation. Aortic Valve The aortic valve is grossly normal. There is no aortic valve stenosis. No aortic regurgitation is present. Tricuspid Valve The tricuspid valve is not well visualized, but is grossly normal. There is no tricuspid stenosis. There is a trace to mild amount of tricuspid regurgitation. There is mild pulmonary hypertension by echo. Right ventricular systolic pressure is estimated to be elevated at 30-40mmHg. Pulmonic Valve The pulmonic valve is not well visualized. Great Vessels The aortic root is not well visualized but is probably normal size. The inferior vena cava appeared normal and decreased > 50% with respiration (RAP 5-10 mmHg). Effusions There is no pericardial effusion. Incidental Findings No definite vegetations noted but if clinical suspicion is high, then consider FRANK and multiple blood cultures. : MEHNAZ SUE > Deloris Wang
[2017-01-11] MEDS: PIPERACILLIN SODIUM/TAZOBACTAM 3.375 GM in NORMAL SALINE 100 ML IV SCH ×4 (05:52→23:38)
[2017-01-11] MEDS: NICOTINE 21 MG/24 HR PATCH.TD24 TD SCH (09:47)
[2017-01-11] MEDS: ENOXAPARIN SODIUM INJ 40 MG/0.4 ML DISP.SYRIN SUBCUT SCH (09:47)
[2017-01-11] MEDS: FAMOTIDINE 20 MG TABLET PO SCH ×2 (09:47→21:18)
--- NOTE | 2017-01-11 11:03 | PROGRESS NOTE E ---
Progress Note NAME: LEOPOLDO LEE : 1960 AGE: 56Y DATE: 01/11/2017 ROOM: 435 SUBJECTIVE: The patient is a 56-year-old male who has a past medical history of cocaine abuse, tobacco abuse, admitted with pyelonephritis and sepsis. He is on antibiotic with Zosyn. He is feeling better. He continues to have a fever. Echocardiogram done yesterday did not show any vegetation. OBJECTIVE: GENERAL: The patient is lying in bed. Not in distress, looks well. VITALS SIGNS: Temperature 100.8, heart rate 106, blood pressure 113/76, respiratory 20. HEENT: Head normocephalic, atraumatic. Pupils round and reactive to light and accommodation bilaterally. Extraocular movements intact. Ears: Tympanic membranes intact bilaterally. No discharge from the ears. No discharge from the nose. NECK: Supple. No increased JVD. No thyromegaly. No lymphadenopathy. CARDIOVASCULAR: Normal S1, S2. Regular rate and rhythm. No murmur. No gallop. RESPIRATORY: Lungs clear. ABDOMEN: Soft, nontender. MUSCULOSKELETAL: No edema. NEUROLOGIC: Awake, alert. SKIN: No rash. LABORATORY: White blood count 10.3, hemoglobin 14, hematocrit 42. Sodium 142, potassium 4.5, chloride 106. ASSESSMENT: 1. SEPSIS SECONDARY TO PYELONEPHRITIS, continue Zosyn. 2. ACUTE KIDNEY INJURY RESOLVED. 3. SEPSIS SECONDARY TO PYELONEPHRITIS FROM URINARY TRACT INFECTION, GRAM-NEGATIVE BACTEREMIA ON ZOSYN. 4. COCAINE ABUSE. PLAN: We will continue IV antibiotics on Zosyn. Echocardiogram ordered was unremarkable. The patient continues to have fever. We will review CT scan of the abdomen with IV contrast for abdomen and pelvis. Laboratory tomorrow morning. MEDICAL NECESSITY: IV antibiotics. DICTATING PHYSICIAN: MEHNAZ SUE M.D. [id number] PHY#: [id number] ID: [id number] JOB#: [id number] ACCT: [id number] cc: >
--- NOTE | 2017-01-11 11:43 | RADIOLOGY REPORT (SQ) ---
EXAM DESCRIPTION: CT ABD/PELVIS WITH IV ONLY COMPLETED DATE/TIME: 01/11/2017 11:26 am REASON FOR STUDY: Pyelonephritis. Continue to have a fever COMPARISON: 01/06/2017. TECHNIQUE: CT scan of the abdomen and pelvis performed using helical scanning technique with dynamic intravenous contrast injection. No oral contrast. Images reviewed with lung, soft tissue, and bone windows. Reconstructed coronal and sagittal MPR images reviewed. Delayed images for evaluation of the urinary system also acquired. All images stored on PACS. All CT scanners at this facility use dose modulation, iterative reconstruction, and/or weight based d osing when appropriate to reduce radiation dose to as low as reasonably achievable (ALARA). [facility]: Dose Right [facility]: CareDose [facility]: Dose Right [facility]: Teradose 4D [facility]: Monitise CONTRAST TYPE AND DOSE: contrast/concentration: Isovue 370.00 mg/ml; Total Contrast Delivered: 69.0 ml; Total Saline Delivered: 65.1 ml RENAL FUNCTION: Creatinine 1.1 RADIATION DOSE: CT Rad equipment meets quality standard of care and radiation dose reduction techniq ues were employed. CTDIvol: 4.8 - 5.2 mGy. DLP: 520 mGy-cm.. LIMITATIONS: None. FINDINGS: Change since prior: None. Significant positive findings: Cholelithiasis. Shotty mesenteric lymph nodes. Mild gaseous distent ion and mild stool in the colon. Significant negative findings: No evidence of bowel or urinary obstruction. Kidneys enhance and exc rete relatively symmetrically. This does not exclude pyelonephritis. Minimal tiny nonobstructing ri ght renal calculi. No developing solid organ lesion. No ascites. No bone pathology. No lung base pathology. OTHER: No other significant finding. IMPRESSION: 1. No evidence of urinary obstruction. Mild right nephrolithiasis. 2. Other chronic c hanges include cholelithiasis and scattered mesenteric lymph nodes. TECHNICAL DOCUMENTATION: JOB ID: [id number] Quality ID # [id number]: Final reports with documentation of one or more dose reduction techniques (e.g., Au tomated exposure control, adjustment of the mA and/or kV according to patient size, use of iterative reconstruction technique) 2010 [employer]- All Rights Reserved
[2017-01-11] MEDS: OXYCODONE-ACETAMINOPHEN 5-325 MG TABLET PO PRN ×2 (12:40→21:18)
[2017-01-12] MEDS: PIPERACILLIN SODIUM/TAZOBACTAM 3.375 GM in NORMAL SALINE 100 ML IV SCH ×3 (05:32→17:53)
[2017-01-12 07:04] LABS: ABSOLUTE BASOPHILS # (AUTO) 0.1 10^3/uL (0.0-0.2); ABSOLUTE EOSINOPHILS # (AUTO) 0.3 10^3/uL (0.0-0.6); ABSOLUTE LYMPHOCYTES (AUTO) 1.4 10^3/uL (0.5-4.7); ABSOLUTE MONOCYTES (AUTO) 1.2 10^3/uL (0.1-1.4); BASOPHILS % (AUTO) 0.6 % (0-2); EOSINOPHILS % (AUTO) 2.8 % (0-6); HEMATOCRIT 42.8 % (37.9-51.0); HEMOGLOBIN 14.4 g/dL (13.5-17.0); HGB HCT DIFFERENCE 0.4; LYMPHOCYTES % (AUTO) 16.1 % (13-45); MEAN CORPUSCULAR HEMOGLOBIN 29.2 pg (27.0-33.4); MEAN CORPUSCULAR HGB CONC 33.6 g/dL (32.0-36.0); MEAN CORPUSCULAR VOLUME 87 fl (80-97); MONOCYTES % (AUTO) 13.7 % (3-13); RED BLOOD COUNT 4.94 10^6/uL (4.35-5.55); RED CELL DISTRIBUTION WIDTH 13.8 % (11.5-14.0); SEGMENTED NEUTROPHILS % (AUTO) 66.8 % (42-78)
[2017-01-12 07:25] LABS: ALBUMIN 3.2 g/dL (3.5-5.0); ANION GAP 15 (5-19); BLOOD UREA NITROGEN 14 mg/dL (7-20); CALCIUM 8.6 mg/dL (8.4-10.2); CARBON DIOXIDE 28 mmol/L (22-30); CHLORIDE 104 mmol/L (98-107); CREATININE RESULT 1.08 mg/dL (0.52-1.25); GLUCOSE 90 mg/dL (75-110); SODIUM 146.6 mmol/L (137-145)
[2017-01-12] MEDS: FAMOTIDINE 20 MG TABLET PO SCH ×2 (09:59→21:45)
[2017-01-12] MEDS: NICOTINE 21 MG/24 HR PATCH.TD24 TD SCH (09:59)
[2017-01-12] MEDS: ENOXAPARIN SODIUM INJ 40 MG/0.4 ML DISP.SYRIN SUBCUT SCH (09:59)
--- NOTE | 2017-01-12 13:28 | PDOC PROGRESS REPORT ---
Subjective Progress Note for:: 01/12/17 Subjective:: f/u pyelonephritis, sepsis, bacteremia reports sweats worse at night, persistent chills and low grade fevers. denies pain, N/V/D, dyspnea ROS: all systems reviewed, see above, remaining systems negative Physical Exam Vital Signs: Temp Pulse Resp BP Pulse Ox 99.5 F 86 15 126/67 H 96 01/12/17 11:59 01/12/17 11:59 01/12/17 11:59 01/12/17 11:59 01/12/17 11:59 Intake & Output 01/11/17 01/12/17 01/13/17 06:59 06:59 06:59 Intake Total 3060 2508 Output Total 2300 800 Balance 760 1708 Weight 64.5 kg 64.9 kg General appearance: PRESENT: thin, well-developed Head exam: PRESENT: atraumatic Eye exam: ABSENT: conjunctival injection, scleral icterus Mouth exam: PRESENT: moist, neck supple Neck exam: PRESENT: full ROM. ABSENT: tracheal deviation Respiratory exam: PRESENT: clear to auscultation anila, unlabored. ABSENT: accessory muscle use Cardiovascular exam: PRESENT: RRR. ABSENT: systolic murmur Pulses: PRESENT: normal radial pulses GI/Abdominal exam: PRESENT: normal bowel sounds, soft. ABSENT: tenderness - no CVA tender or lower pole of kidney tender to palp Extremities exam: ABSENT: calf tenderness, pedal edema Neurological exam: PRESENT: alert, awake, oriented to person, oriented to place , oriented to time, oriented to situation Psychiatric exam: PRESENT: appropriate affect, normal mood Skin exam: PRESENT: dry, warm Results Laboratory Results: 01/12/17 06:45 01/12/17 06:45 01/12/17 01/12/17 06:45 06:45 WBC 9.0 RBC 4.94 Hgb 14.4 Hct 42.8 MCV 87 MCH 29.2 MCHC 33.6 RDW 13.8 Plt Count 246 Seg Neutrophils % 66.8 Lymphocytes % 16.1 Monocytes % 13.7 H Eosinophils % 2.8 Basophils % 0.6 Absolute Neutrophils 6.0 Absolute Lymphocytes 1.4 Absolute Monocytes 1.2 Absolute Eosinophils 0.3 Absolute Basophils 0.1 Sodium 146.6 H Potassium 4.0 Chloride 104 Carbon Dioxide 28 Anion Gap 15 BUN 14 Creatinine 1.08 Est GFR ( Amer) > 60 Est GFR (Non-Af Amer) > 60 Glucose 90 Calcium 8.6 Phosphorus 3.0 Albumin 3.2 L 01/06/17 01/06/17 01/06/17 10:56 16:20 22:37 Troponin I < 0.012 < 0.012 < 0.012 Impressions: Chest X-Ray 01/06/17 07:30 IMPRESSION: NO SIGNIFICANT RADIOGRAPHIC FINDING IN THE CHEST. Abdomen/Pelvis CT 01/11/17 00:00 IMPRESSION: 1. No evidence of urinary obstruction. Mild right nephrolithiasis. 2. Other chronic changes include cholelithiasis and scattered mesenteric lymph nodes. Status: Image reviewed by me - agree with rads Assessment & Plan - Diagnosis (1) Bacteremia due to Escherichia coli Is this a current diagnosis for this admission?: Yes Plan: repeat blood cultures and if still positive he will need FRANK; o/w continue current care (2) Acute pyelonephritis Is this a current diagnosis for this admission?: Yes Plan: some improved; 2/2 e coli (3) Sepsis Qualifiers: Sepsis type: Escherichia coli Qualified Code(s): A41.51 - Sepsis due to Escherichia coli [E. coli] Is this a current diagnosis for this admission?: Yes Plan: improving; continue current care - Time Time Spent with patient: 35 or more minutes Medications reviewed and adjusted accordingly: Yes - Plan Summary Plan Summary: e coli susc to zosyn but not augmentin, will likelyl need FQ at change to oral
[2017-01-12] MEDS: OXYCODONE-ACETAMINOPHEN 5-325 MG TABLET PO PRN (17:54)
[2017-01-13] MEDS: PIPERACILLIN SODIUM/TAZOBACTAM 3.375 GM in NORMAL SALINE 100 ML IV SCH ×3 (01:22→13:02)
[2017-01-13] MEDS: ENOXAPARIN SODIUM INJ 40 MG/0.4 ML DISP.SYRIN SUBCUT SCH (09:11)
[2017-01-13] MEDS: FAMOTIDINE 20 MG TABLET PO SCH (09:11)
[2017-01-13] MEDS: NICOTINE 21 MG/24 HR PATCH.TD24 TD SCH (09:12)
[2017-01-13] MEDS: OXYCODONE-ACETAMINOPHEN 5-325 MG TABLET PO PRN (13:01)
[2017-01-13 13:29] VITALS: BP 155/87
--- NOTE | 2017-01-13 15:01 | PDOC DISCHARGE SUMMARY ---
General - Admit/Disc Date/PCP Admission Date/Primary Care Provider: 01/06/17 09:50 Discharge Date: 01/13/17 - Discharge Diagnosis (1) Bacteremia due to Escherichia coli Is this a current diagnosis for this admission?: Yes Summary: Repeat blood cultures are negative. Likely secondary to his pyelonephritis. He should complete an additional 10 days of oral Cipro based on the susceptibilities. (2) Acute pyelonephritis Is this a current diagnosis for this admission?: Yes Summary: Improved (3) Sepsis Is this a current diagnosis for this admission?: Yes Summary: Resolved - Additional Information Resuscitation Status: Full Code Discharge Diet: As Tolerated Discharge Activity: Activity As Tolerated Home Medications: Ciprofloxacin HCl [Cipro 500 mg Tablet] 500 mg PO BID #20 tablet 01/13/17 Oxycodone HCl/Acetaminophen [Percocet 5-325 mg Tablet] 2 tab PO Q6HP PRN #10 tablet 01/13/17 History of Present Illness Patient complains of: Flank pain and fevers History of Present Illness: LEOPOLDO LEE is a 56 year old male with no significant past medical history except for removal of his single testis 19 years ago after trauma. He presented with 2 days history of generalized body aches, fever chills, urinary urgency and diarrhea. He notes that he has been having diffuse abdominal pain associated with right flank pain. The pain is sometimes up to 8/10. He informs me that he got cocaine from a friend to try to reduce the pain. He denies chest pain, shortness of breath, headache, any focal neurologic deficits. In the emergency room, temperature was 102.2, heart rate 112, respiratory rate 25. Sodium was 140 with potassium of 4.8, creatinine 1.4. WBC 20.1 with a left shift noted. EKG showed sinus tachycardia, and chest x-ray did not show any acute infiltrate per my personal review. He has received IV fluid boluses, and has been started on IV ciprofloxacin. Hospital Course Hospital Course: Patient had persistent fevers for several days but has now defervesced nicely. His pain is resolved and repeat blood cultures are showing no growth. He is hemodynamically stable and ready for discharge home. Physical Exam Vital Signs: Temp Pulse Resp BP Pulse Ox 99.0 F 97 18 155/87 H 97 01/13/17 13:27 01/13/17 13:27 01/13/17 13:27 01/13/17 13:27 01/13/17 13:27 Intake & Output 01/12/17 01/13/17 01/14/17 06:59 06:59 06:59 Intake Total 2508 3210 Output Total 800 2400 Balance 1708 810 Weight 64.9 kg 64.9 kg General appearance: PRESENT: thin, well-developed Head exam: PRESENT: atraumatic Eye exam: ABSENT: conjunctival injection, scleral icterus Mouth exam: PRESENT: moist, neck supple Neck exam: PRESENT: full ROM. ABSENT: tracheal deviation Respiratory exam: PRESENT: clear to auscultation anila, unlabored. ABSENT: accessory muscle use Cardiovascular exam: PRESENT: RRR. ABSENT: systolic murmur Pulses: PRESENT: normal radial pulses GI/Abdominal exam: PRESENT: normal bowel sounds, soft. ABSENT: tenderness - no CVA tender or lower pole of kidney tender to palp Extremities exam: ABSENT: calf tenderness, pedal edema Neurological exam: PRESENT: alert, awake, oriented to person, oriented to place , oriented to time, oriented to situation Psychiatric exam: PRESENT: appropriate affect, normal mood Skin exam: PRESENT: dry, warm Results Laboratory Results: 01/12/17 06:45 01/12/17 06:45 01/06/17 01/06/17 01/06/17 10:56 16:20 22:37 Troponin I < 0.012 < 0.012 < 0.012 Impressions: Chest X-Ray 01/06/17 07:30 IMPRESSION: NO SIGNIFICANT RADIOGRAPHIC FINDING IN THE CHEST. Abdomen/Pelvis CT 01/11/17 00:00 IMPRESSION: 1. No evidence of urinary obstruction. Mild right nephrolithiasis. 2. Other chronic changes include cholelithiasis and scattered mesenteric lymph nodes. Qualifiers PATEINT BEING DISCHARGED WITH ANY OF THE FOLLOWING DIAGNOSIS?: No VTE patient discharged on overlapping Therapy?: No Reason(s) for not prescribing Overlap Therapy:: Not indicated Plan Discharge Plan: Stable for discharge home. Return to emergency department for any recurrence of his symptoms. Time Spent: Greater than 30 Minutes
== END 2017-01-13 14:50 | disposition home or self-care (01) | DRG 872 ==
LOC: ER 05:45 → OBSVTOIN 09:50 → EH 09:50 → 4W 13:07 → 4S 01-08 17:45
PROVIDERS: ADMIT Emergency Medicine; ATTEND Emergency Medicine
DX: A41.51 Sepsis due to Escherichia coli [E. coli] (principal); N10 Acute pyelonephritis; N17.9 Acute kidney failure, unspecified; B96.20 Unspecified Escherichia coli [E. coli] as the cause of diseases classified elsewhere; E86.9 Volume depletion, unspecified; F14.10 Cocaine abuse, uncomplicated; K80.20 Calculus of gallbladder without cholecystitis without obstruction; G43.909 Migraine, unspecified, not intractable, without status migrainosus; K21.9 Gastro-esophageal reflux disease without esophagitis; Z79.899 Other long term (current) drug therapy; F17.200 Nicotine dependence, unspecified, uncomplicated
CPT/HCPCS: 36415; 71020; 74177; 80053; 80069; 80307; 81001; 82150; 82550; 83605; 83690; 84484; 85025; 85610; 86701; 87040; 87077; 87086; 87088; 87186; 93005; 93010; 93306; 99285; J0696; J0743; J0744; J1650; J2543; J7030

== ENCOUNTER → 2017-02-19 | Outpatient (CLI) | payer OTHER ==
[2017-02-19 11:08] LABS: ABSOLUTE EOSINOPHILS # (AUTO) 0.5 10^3/uL (0.0-0.6); ABSOLUTE LYMPHOCYTES (AUTO) 1.2 10^3/uL (0.5-4.7); ABSOLUTE MONOCYTES (AUTO) 0.7 10^3/uL (0.1-1.4); ABSOLUTE NEUT (AUTO) 2.3 10^3/uL (1.7-8.2); BASOPHILS % (AUTO) 0.7 % (0-2); HEMATOCRIT 45.9 % (37.9-51.0); HEMOGLOBIN 14.9 g/dL (13.5-17.0); MEAN CORPUSCULAR HEMOGLOBIN 28.2 pg (27.0-33.4); MEAN CORPUSCULAR HGB CONC 32.4 g/dL (32.0-36.0); MEAN CORPUSCULAR VOLUME 87 fl (80-97); PLATELET COUNT 169 10^3/uL (150-450); RED BLOOD COUNT 5.29 10^6/uL (4.35-5.55); RED CELL DISTRIBUTION WIDTH 14.6 % (11.5-14.0); SEGMENTED NEUTROPHILS % (AUTO) 49.3 % (42-78); TOTAL CELLS COUNTED % (AUTO) 100 %; WHITE BLOOD COUNT 4.7 10^3/uL (4.0-10.5)
[2017-02-19 11:33] LABS: ALANINE AMINOTRANSFERASE 38 U/L (21-72); ALBUMIN 3.9 g/dL (3.5-5.0); ALKALINE PHOSPHATASE 114 U/L (38-126); ANION GAP 11 (5-19); ASPARTATE AMINO TRANSFERASE 84 U/L (17-59); BILIRUBIN,DIRECT 0.5 mg/dL (0.0-0.4); BILIRUBIN,TOTAL 0.6 mg/dL (0.2-1.3); BLOOD UREA NITROGEN 13 mg/dL (7-20); CALCIUM 9.5 mg/dL (8.4-10.2); CARBON DIOXIDE 28 mmol/L (22-30); CHLORIDE 105 mmol/L (98-107); GLUCOSE 91 mg/dL (75-110); POTASSIUM 4.3 mmol/L (3.6-5.0); SODIUM 143.9 mmol/L (137-145); TOTAL PROTEIN 7.9 g/dL (6.3-8.2); URIC ACID 8.2 mg/dL (3.5-8.5)
[2017-02-19 12:02] LABS: C-REACTIVE PROTEIN < 5.0 mg/L (<10.0)
[2017-02-19 12:14] LABS: ERYTHROCYTE SEDIMENTATION RATE 19 mm/hr (0-20)
[2017-02-20 08:39] LABS: HEPATITIS C VIRUS AB >11.0 s/co ratio (0.0-0.9)
[2017-02-20 11:29] LABS: ANGIOTENSIN-CONVERTING ENZYME 72 U/L (14-82)
== END ==
LOC: CCC 10:26
DX: D86.9 Sarcoidosis, unspecified (principal); R63.0 Anorexia; N11.0 Nonobstructive reflux-associated chronic pyelonephritis
CPT/HCPCS: 36415; 80053; 82164; 84153; 84550; 85025; 85652; 86140; 86803; 86804

== ENCOUNTER 2017-03-26 21:04 | Emergency (ER) | payer OTHER | END 2017-03-27 00:04 | disposition left against medical advice (07) | LOC: ER 21:04 | DX: Z53.21 Procedure and treatment not carried out due to patient leaving prior to being seen by health care provider (principal) ==

== ENCOUNTER 2017-03-27 07:29 | Emergency (ER) | payer SELFPAY ==
[2017-03-27 09:34] LABS: ABSOLUTE EOSINOPHILS # (AUTO) 0.4 10^3/uL (0.0-0.6); ABSOLUTE LYMPHOCYTES (AUTO) 1.1 10^3/uL (0.5-4.7); ABSOLUTE MONOCYTES (AUTO) 0.7 10^3/uL (0.1-1.4); ABSOLUTE NEUT (AUTO) 3.6 10^3/uL (1.7-8.2); BASOPHILS % (AUTO) 0.6 % (0-2); EOSINOPHILS % (AUTO) 6.4 % (0-6); HEMATOCRIT 50.4 % (37.9-51.0); HEMOGLOBIN 16.6 g/dL (13.5-17.0); LYMPHOCYTES % (AUTO) 19.5 % (13-45); MEAN CORPUSCULAR HEMOGLOBIN 28.5 pg (27.0-33.4); MEAN CORPUSCULAR VOLUME 86 fl (80-97); MONOCYTES % (AUTO) 12.3 % (3-13); PLATELET COUNT 178 10^3/uL (150-450); RED BLOOD COUNT 5.83 10^6/uL (4.35-5.55); RED CELL DISTRIBUTION WIDTH 14.7 % (11.5-14.0); SEGMENTED NEUTROPHILS % (AUTO) 61.2 % (42-78); TOTAL CELLS COUNTED % (AUTO) 100 %; WHITE BLOOD COUNT 5.9 10^3/uL (4.0-10.5)
[2017-03-27 10:03] LABS: ALANINE AMINOTRANSFERASE 47 U/L (21-72); ALBUMIN 4.3 g/dL (3.5-5.0); ALKALINE PHOSPHATASE 122 U/L (38-126); ANION GAP 10 (5-19); ASPARTATE AMINO TRANSFERASE 100 U/L (17-59); BILIRUBIN,DIRECT 0.7 mg/dL (0.0-0.4); BILIRUBIN,TOTAL 0.7 mg/dL (0.2-1.3); BLOOD UREA NITROGEN 14 mg/dL (7-20); CALCIUM 10.6 mg/dL (8.4-10.2); CARBON DIOXIDE 30 mmol/L (22-30); CHLORIDE 103 mmol/L (98-107); GLUCOSE 99 mg/dL (75-110); POTASSIUM 4.2 mmol/L (3.6-5.0); SODIUM 142.7 mmol/L (137-145)
[2017-03-27 10:04] LABS: ACETAMINOPHEN < 10 ug/mL (10-30); ALCOHOL < 10 mg/dL (NONE DETECTED); SALICYLATE < 1.0 mg/dL (2.0-20.0)
[2017-03-27] MEDS ORDERED: NORMAL SALINE 1000 ML 1,000 ML IV PRN (11:01)
--- NOTE | 2017-03-27 11:57 | RADIOLOGY REPORT (SQ) ---
EXAM DESCRIPTION: CT HEAD WITHOUT COMPLETED DATE/TIME: 03/27/2017 11:48 am REASON FOR STUDY: ams COMPARISON: CT brain 12/17/2009 TECHNIQUE: Axial images acquired through the brain without intravenous contrast. Images reviewed wi th bone, brain and subdural windows. Images stored on PACS. All CT scanners at this facility use dose modulation, iterative reconstruction, and/or weight based d osing when appropriate to reduce radiation dose to as low as reasonably achievable (ALARA). [facility]: Dose Right [facility]: CareDose [facility]: Dose Right [facility]: Teradose 4D [facility]: Smart [employer] RADIATION DOSE: CT Rad equipment meets quality standard of care and radiation dose reduction techniq ues were employed. CTDIvol: 64.6 mGy. DLP: 1163 mGy-cm. mGy. LIMITATIONS: None. FINDINGS: VENTRICLES: Normal size and contour. CEREBRUM: No masses. No hemorrhage. No midline shift. No evidence for acute infarction. Normal gra y/white matter differentiation. No areas of low density in the white matter. CEREBELLUM: No masses. No hemorrhage. No alteration of density. No evidence for acute infarction. EXTRAAXIAL SPACES: No fluid collections. No masses. ORBITS AND GLOBE: No intra- or extraconal masses. Normal contour of globe without masses. CALVARIUM: No fracture. PARANASAL SINUSES: No fluid or mucosal thickening. SOFT TISSUES: No mass or hematoma. OTHER: No other significant finding. IMPRESSION: NORMAL BRAIN CT WITHOUT CONTRAST. EVIDENCE OF ACUTE STROKE: NO. COMMENT: Quality ID # [id number]: Final reports with documentation of one or more dose reduction techniques (e.g., Automated exposure control, adjustment of the mA and/or kV according to patient size, use of iterative reconstruction technique) TECHNICAL DOCUMENTATION: JOB ID: [id number] 3450 [employer]- All Rights Reserved
[2017-03-27 13:26] LABS: APPEARANCE,URINE CLEAR; BILIRUBIN,URINE NEGATIVE (NEGATIVE); COLOR,URINE YELLOW; GLUCOSE, URINE NEGATIVE (NEGATIVE); KETONES,URINE NEGATIVE (NEGATIVE); LEUKOCYTE ESTERASE,URINE NEGATIVE (NEGATIVE); NITRITE,URINE NEGATIVE (NEGATIVE); PROTEIN,URINE NEGATIVE (NEGATIVE); URINE SPECIFIC GRAVITY 1.012; UROBILINOGEN,URINE NEGATIVE mg/dL (<2.0)
[2017-03-27 13:40] LABS: URINE AMPHETAMINES SCREEN NEGATIVE; URINE BARBITURATES SCREEN NEGATIVE; URINE BENZODIAZEPINES SCREEN UNCONFIRMED POSITIVE; URINE COCAINE SCREEN NEGATIVE; URINE MARIJUANA (THC) SCREEN NEGATIVE; URINE METHADONE SCREEN NEGATIVE; URINE PHENCYCLIDINE SCREEN NEGATIVE
--- NOTE | 2017-03-27 14:07 | PSYCHOLOGICAL NOTE ---
Psych Note - Psych Note Psych Note: Reason for consult: substance abuse Consent permissions: none given patient noted to have been received via EMS. EMS reports patient was at [employer] laying on the floor. EMS reports patient has been "asking for a box and walking through a pond". EMS reports patient states he did cocaine 3 hours ago. patient noted to be alert to self and moving all extremities. Patient disclosed that he does not know why he is currently here. He states he has a history of psychosis however states he has not been a medication for years. He reports that his last episode of sarcoidosis was 2 weeks ago where his glands swelled up. Patient states that he has both visual and auditory hallucinations. He reports that his visual hallucinations are black and white and that he does recognize the voices; however, is unable to remember any other details. [place] controlled substance reporting system indicates patient receives weekly prescriptions of Suboxone however patient last prescription dispensed date was 03/08/2017. Patient disclosed to attending physician that he received "pain medication" from a friend and took "a few." Patient disclosed he did not know what the medication was only that it was for pain. Patient was also noted to ask where his car was. Patient is semi-alert and orientated to person, place. Patient had to be re- awoken multiple times during evaluation. Patient discloses that he has both auditory visual hallucinations however patient's description of visual hallucinations are not congruent with known manifestations. Patient provided medical past history. At this time patient is still suffering the effects of an unknown benzodiazepine. Patient denies suicidal and homicidal ideation. Delusions are absent and behaviors congruent with intact reality based presentation i.e. organized, linear, rational thinking. Cognitive functioning is historical poor due to polysubstance abuse i.e. opioid, benzodiazepine, and cocaine. 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 Patient does not meet IVC criteria per [place] GS 122C. Patient denies suicidal homicidal ideation. Delusions are absent behaviors congruent with intact reality based presentation i.e. organized and linear thinking. Patient has historically demonstrated poor cognitive functioning (i.e. insight, judgment, impulse control) due to polysubstance abuse which includes opioid, benzodiazepine and cocaine. Currently patient was positive for benzodiazepine. Patient disclosed difficulties with hallucinations however patient's description of symptoms does not correlate with known manifestations of visual hallucinations (i.e. seeing things that are in black and white). Additionally patient was admitted to [facility] in December for 1 week (01/06/2017-01/13/2017); difficulties with mental health or psychosis were absent. Patient is encouraged to seek substance abuse treatment; patient received substance abuse resource packet. Dr. Newberry was consulted and the care management this patient; attending physician is agreement with her conditions and disposition
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
[2017-03-27 14:28] VITALS: BP 141/87
--- NOTE | 2017-03-27 22:35 | EKG REPORT ---
SEVERITY:- OTHERWISE NORMAL ECG - SINUS RHYTHM MINIMAL ST ELEVATION, ANTERIOR LEADS PROBABLE EARLY REPOLARIZATION CHANGES. : Confirmed by: Deloris Wang 27-Mar-2017 22:34:53
== END 2017-03-27 14:40 | disposition home or self-care (01) ==
LOC: ER 07:29
DX: F13.90 Sedative, hypnotic, or anxiolytic use, unspecified, uncomplicated (principal); R41.3 Other amnesia; Z72.0 Tobacco use
CPT/HCPCS: 93005; 99285; 96360; 36415; 82962; 80307 ×4; 85025; 80053; 81001; 70450; 93010; J7030

== ENCOUNTER 2017-04-30 10:58 | Emergency (ER) | payer SELFPAY ==
--- NOTE | 2017-04-30 11:53 | ER Document Report ---
ED Medical Screen (RME) - General Chief Complaint: General Weakness Stated Complaint: WEAKNESS Time Seen by Provider: 04/30/17 11:51 Notes: Patient states that he has a long history of sarcoid that has not been treated. He states he is having headaches. He is lightheaded. He also has diffuse abdominal pain. TRAVEL OUTSIDE OF THE [place] IN LAST 30 DAYS: No - Related Data Allergies/Adverse Reactions: No Known Allergies Allergy (Verified 04/30/17 11:00) Past Medical History - Social History Chew tobacco use (# tins/day): No Frequency of alcohol use: Occasional Drug Abuse: None Family history: Reviewed & Not Pertinent Pulmonary Medical History: Denies: Hx Tuberculosis Neurological Medical History: Reports: Hx Migraine Renal/ Medical History: Denies: Hx Peritoneal Dialysis GI Medical History: Reports: Hx Gastroesophageal Reflux Disease Musculoskeltal Medical History: Reports Hx Arthritis, Reports Hx Musculoskeletal Deformity, Reports Hx Musculoskeletal Trauma Traumatic Medical History: Reports: Hx Fractures - clavicle and ankle Past Surgical History: Reports: Hx Abdominal Surgery - hernia repair, Hx Orthopedic Surgery - left ankle. Denies: Hx Pacemaker - Immunizations Hx Diphtheria, Pertussis, Tetanus Vaccination: Yes History of Influenza Vaccine for 11/2016 - 04/2017 Season: No Physical Exam - Vital signs Vitals: Temp Pulse Resp BP Pulse Ox 97.5 F 99 20 108/79 96 04/30/17 11:08 04/30/17 11:08 04/30/17 11:08 04/30/17 11:08 04/30/17 11:08 Course - Vital Signs Vital signs: Temp Pulse Resp BP Pulse Ox 97.5 F 99 20 108/79 96 04/30/17 11:08 04/30/17 11:08 04/30/17 11:08 04/30/17 11:08 04/30/17 11:08
[2017-04-30 12:50] LABS: ABSOLUTE EOSINOPHILS # (AUTO) 0.5 10^3/uL (0.0-0.6); ABSOLUTE LYMPHOCYTES (AUTO) 0.9 10^3/uL (0.5-4.7); ABSOLUTE MONOCYTES (AUTO) 0.7 10^3/uL (0.1-1.4); ABSOLUTE NEUT (AUTO) 2.6 10^3/uL (1.7-8.2); BASOPHILS % (AUTO) 0.5 % (0-2); EOSINOPHILS % (AUTO) 10.8 % (0-6); HEMATOCRIT 54.4 % (37.9-51.0); HEMOGLOBIN 17.6 g/dL (13.5-17.0); LYMPHOCYTES % (AUTO) 19.3 % (13-45); MEAN CORPUSCULAR HEMOGLOBIN 27.9 pg (27.0-33.4); MEAN CORPUSCULAR HGB CONC 32.3 g/dL (32.0-36.0); MEAN CORPUSCULAR VOLUME 86 fl (80-97); PLATELET COUNT 187 10^3/uL (150-450); RED BLOOD COUNT 6.31 10^6/uL (4.35-5.55); RED CELL DISTRIBUTION WIDTH 14.7 % (11.5-14.0); SEGMENTED NEUTROPHILS % (AUTO) 54.4 % (42-78); TOTAL CELLS COUNTED % (AUTO) 100 %; WHITE BLOOD COUNT 4.7 10^3/uL (4.0-10.5)
[2017-04-30 12:59] LABS: APPEARANCE,URINE CLEAR; BILIRUBIN,URINE NEGATIVE (NEGATIVE); COLOR,URINE YELLOW; GLUCOSE, URINE NEGATIVE (NEGATIVE); KETONES,URINE NEGATIVE (NEGATIVE); LEUKOCYTE ESTERASE,URINE NEGATIVE (NEGATIVE); NITRITE,URINE NEGATIVE (NEGATIVE); PROTEIN,URINE NEGATIVE (NEGATIVE); URINE SPECIFIC GRAVITY 1.015
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
[2017-04-30 13:08] LABS: ALANINE AMINOTRANSFERASE 43 U/L (21-72); ALBUMIN 4.5 g/dL (3.5-5.0); ALKALINE PHOSPHATASE 125 U/L (38-126); ANION GAP 12 (5-19); ASPARTATE AMINO TRANSFERASE 95 U/L (17-59); BILIRUBIN,DIRECT 0.7 mg/dL (0.0-0.4); BILIRUBIN,TOTAL 1.2 mg/dL (0.2-1.3); BLOOD UREA NITROGEN 16 mg/dL (7-20); CALCIUM 10.4 mg/dL (8.4-10.2); CARBON DIOXIDE 30 mmol/L (22-30); CHLORIDE 97 mmol/L (98-107); GLUCOSE 91 mg/dL (75-110); POTASSIUM 5.2 mmol/L (3.6-5.0); SODIUM 139.2 mmol/L (137-145); TOTAL PROTEIN 8.5 g/dL (6.3-8.2)
--- NOTE | 2017-04-30 13:51 | ER Document Report ---
ED General - General Chief Complaint: General Weakness Stated Complaint: WEAKNESS Time Seen by Provider: 04/30/17 11:51 Mode of Arrival: Ambulatory Information source: Patient Notes: 56-year-old male history of sarcoidosis presents with complaints of generalized pain where he sarcoidosis is located on his neck as well as lightheadedness dizziness when he stands all of a sudden. Patient notes his urine has been darker. Patient denies any fevers or chills denies any nausea vomiting diarrhea TRAVEL OUTSIDE OF THE [place] IN LAST 30 DAYS: No - HPI Onset: Last week Onset/Duration: Persistent Quality of pain: Achy Severity: Mild Pain Level: 1 Associated symptoms: Weakness, Other Exacerbated by: Standing Relieved by: Denies Similar symptoms previously: No Recently seen / treated by doctor: No - Related Data Allergies/Adverse Reactions: No Known Allergies Allergy (Verified 04/30/17 11:00) Past Medical History - Social History Smoking Status: Current Every Day Smoker Cigarette use (# per day): Yes Chew tobacco use (# tins/day): No Smoking Education Provided: No Frequency of alcohol use: Occasional Drug Abuse: None Family History: Arthritis, CAD, DM, Hyperlipidemia, Hypertension. denies: COPD , CVA, Malignancy, Thyroid Disfunction Patient has suicidal ideation: No Patient has homicidal ideation: No Pulmonary Medical History: Denies: Hx Tuberculosis Neurological Medical History: Reports: Hx Migraine Renal/ Medical History: Denies: Hx Peritoneal Dialysis GI Medical History: Reports: Hx Gastroesophageal Reflux Disease Musculoskeltal Medical History: Reports Hx Arthritis, Reports Hx Musculoskeletal Deformity, Reports Hx Musculoskeletal Trauma Traumatic Medical History: Reports: Hx Fractures - clavicle and ankle Past Surgical History: Reports: Hx Abdominal Surgery - hernia repair, Hx Orthopedic Surgery - left ankle. Denies: Hx Pacemaker - Immunizations Hx Diphtheria, Pertussis, Tetanus Vaccination: Yes Review of Systems - Review of Systems Notes: REVIEW OF SYSTEMS: CONSTITUTIONAL : Denies fever, chills, or sweats. Denies recent illness. EENT: Denies eye, ear, throat, or mouth pain or symptoms. Denies nasal or sinus congestion or discharge. Denies throat, tongue, or mouth swelling or difficulty swallowing. CARDIOVASCULAR: Denies chest pain. Denies palpitations or racing or irregular heart beat. Denies ankle edema. RESPIRATORY: Denies cough, cold, or chest congestion. Denies shortness of breath, difficulty breathing, or wheezing. GASTROINTESTINAL: Denies abdominal pain or distention. Denies nausea, vomiting , or diarrhea. Denies blood in vomitus, stools, or per rectum. Denies black, tarry stools. Denies constipation. GENITOURINARY: Denies difficulty urinating, painful urination, burning, frequency, blood in urine, or discharge. MUSCULOSKELETAL: Denies back or neck pain or stiffness. Denies joint pain or swelling. SKIN: Admits to painful nodules HEMATOLOGIC : Denies easy bruising or bleeding. LYMPHATIC: Denies swollen, enlarged glands. NEUROLOGICAL: Admits to dizziness when standing PSYCHIATRIC: Denies anxiety or stress. Denies depression, suicidal ideation, or homicidal ideation. ALL OTHER SYSTEMS REVIEWED AND NEGATIVE. Dictation was performed using [employer] voice recognition software PHYSICAL EXAMINATION: GENERAL: Well-appearing, well-nourished and in no acute distress. HEAD: Atraumatic, normocephalic. EYES: Pupils equal round and reactive to light, extraocular movements intact, sclera anicteric, conjunctiva are normal. ENT: Nares patent, oropharynx clear without exudates. Moist mucous membranes. NECK: Normal range of motion, supple without lymphadenopathy LUNGS: Breath sounds clear to auscultation bilaterally and equal. No wheezes rales or rhonchi. HEART: Regular rate and rhythm without murmurs ABDOMEN: Soft, nontender, nondistended abdomen. No guarding, no rebound. No masses appreciated. Musculoskeletal: Normal range of motion, no pitting or edema. No cyanosis. NEUROLOGICAL: Cranial nerves grossly intact. Normal speech, normal gait. Normal sensory, motor exams PSYCH: Normal mood, normal affect. SKIN: Cervical nodules noted posterior tender to palpation no signet sign of infection Physical Exam - Vital signs Vitals: Temp Pulse Resp BP Pulse Ox 97.5 F 99 20 108/79 96 04/30/17 11:08 04/30/17 11:08 04/30/17 11:08 04/30/17 11:08 04/30/17 11:08 Course - Re-evaluation Re-evalutation: 04/30/17 16:52 Patient's presentation is most consistent with orthostatic hypotension mild dehydration, patient is able to tolerate p.o. hydration, he will given pain control for his chronic sarcoidosis pain otherwise is well-appearing no distress lab work noted no significant abnormality After performing a Medical Screening Examination, I estimate there is LOW risk for INTRACRANIAL HEMORRHAGE, ISCHEMIC CVA, MALIGNANT DYSRHYTHMIA, ACUTE CORONARY SYNDROME, MENINGITIS, PULMONARY EMBOLISM, or SEPSIS thus I consider the discharge disposition reasonable. I have reevaluated this patient multiple times and no significant life threatening changes are noted. The patient and I have discussed the diagnosis and risks, and we agree with discharging home with close follow-up with the understanding that symptoms and presentations can change. We also discussed returning to the Emergency Department immediately if new or worsening symptoms occur. We have discussed the symptoms which are most concerning (e.g., changing or worsening pain, weakness, vomiting, fever) that necessitate immediate return. - Vital Signs Vital signs: Temp Pulse Resp BP Pulse Ox 97.8 F 88 18 110/80 97 04/30/17 14:17 04/30/17 14:17 04/30/17 14:17 04/30/17 14:17 04/30/17 14:17 - Laboratory Result Diagrams: 04/30/17 12:20 04/30/17 12:20 Laboratory results interpreted by me: 04/30/17 04/30/17 04/30/17 12:20 12:20 12:20 RBC 6.31 H Hgb 17.6 H Hct 54.4 H RDW 14.7 H Monocytes % 15.0 H Eosinophils % 10.8 H Potassium 5.2 H Chloride 97 L Calcium 10.4 H Direct Bilirubin 0.7 H AST 95 H Total Protein 8.5 H Urine Urobilinogen 4.0 H - Diagnostic Test Radiology reviewed: Image reviewed - no acute abnormality , report given to patient, Reports reviewed Discharge - Discharge Clinical Impression: Dehydration, Sarcoidosis Condition: Stable Disposition: HOME, SELF-CARE Instructions: Dehydration ([facility]) Additional Instructions: Follow up with your physician tomorrow for further care or return to the ED IMMEDIATELY if symptoms worsen or new concerns occur. If you cannot afford to follow up with your primary care physician a list of low cost clinics have been provided at the end of your discharge papers as well. Prescriptions: Hydrocodone/Acetaminophen [[place] 5-325 mg Tablet] 1 tab PO Q6 #10 tablet Prednisone [Deltasone 20 mg Tablet] 3 tab PO DAILY 5 Days tablet
[2017-04-30 14:18] VITALS: BP 110/80
== END 2017-04-30 14:18 | disposition home or self-care (01) ==
LOC: ER 10:58
DX: E86.0 Dehydration (principal); D86.9 Sarcoidosis, unspecified; R53.1 Weakness; R42 Dizziness and giddiness; F17.210 Nicotine dependence, cigarettes, uncomplicated
CPT/HCPCS: 36415; 70450; 80053; 81001; 85025; 99285

== ENCOUNTER 2018-01-22 12:23 | Emergency (ER) | payer OTHER ==
[2018-01-22] MEDS ORDERED: HYDROCODONE/ACETAMINOPHEN 5-325 MG TABLET PO ONE (13:24)
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
[2018-01-22 15:29] VITALS: BP 122/87
== END 2018-01-22 15:30 | disposition home or self-care (01) ==
LOC: ER 12:23
DX: S39.012A Strain of muscle, fascia and tendon of lower back, initial encounter (principal); S76.911A Strain of unspecified muscles, fascia and tendons at thigh level, right thigh, initial encounter; S43.402A Unspecified sprain of left shoulder joint, initial encounter; M54.2 Cervicalgia; V89.2XXA Person injured in unspecified motor-vehicle accident, traffic, initial encounter; F17.200 Nicotine dependence, unspecified, uncomplicated; G89.29 Other chronic pain; M25.572 Pain in left ankle and joints of left foot
CPT/HCPCS: 72110; 99283

== ENCOUNTER 2018-12-10 12:28 | Emergency (ER) | payer OTHER ==
[2018-12-10] MEDS ORDERED: IBUPROFEN 600 MG TABLET PO ONE ×2 (13:43→16:00)
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
[2018-12-10] MEDS ORDERED: HYDROCODONE/ACETAMINOPHEN 5-325 MG (6 TAB/ER DISP) PO PRN (16:27)
[2018-12-10] MEDS ORDERED: ACETAMINOPHEN 325 MG TABLET PO ONE (16:27)
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
[2018-12-10 16:47] VITALS: BP 122/85
== END 2018-12-10 16:48 | disposition home or self-care (01) ==
LOC: ER 12:28
DX: S29.012A Strain of muscle and tendon of back wall of thorax, initial encounter (principal); S16.1XXA Strain of muscle, fascia and tendon at neck level, initial encounter; M79.18 Myalgia, other site; V49.9XXA Car occupant (driver) (passenger) injured in unspecified traffic accident, initial encounter; F17.200 Nicotine dependence, unspecified, uncomplicated
CPT/HCPCS: 71046

== ENCOUNTER 2018-12-21 11:48 | Emergency (ER) | payer OTHER ==
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
[2018-12-21 14:14] LABS: ABSOLUTE BASOPHILS # (AUTO) 0.1 10^3/uL (0.0-0.2); ABSOLUTE EOSINOPHILS # (AUTO) 0.1 10^3/uL (0.0-0.6); ABSOLUTE LYMPHOCYTES (AUTO) 1.8 10^3/uL (0.5-4.7); ABSOLUTE MONOCYTES (AUTO) 1.4 10^3/uL (0.1-1.4); ABSOLUTE NEUT (AUTO) 5.5 10^3/uL (1.7-8.2); BASOPHILS % (AUTO) 0.8 % (0-2); HEMATOCRIT 44.4 % (37.9-51.0); HEMOGLOBIN 14.9 g/dL (13.5-17.0); LYMPHOCYTES % (AUTO) 20.7 % (13-45); MEAN CORPUSCULAR HGB CONC 33.4 g/dL (32.0-36.0); MEAN CORPUSCULAR VOLUME 90 fl (80-97); MONOCYTES % (AUTO) 15.6 % (3-13); PLATELET COUNT 183 10^3/uL (150-450); RED BLOOD COUNT 4.95 10^6/uL (4.35-5.55); SEGMENTED NEUTROPHILS % (AUTO) 61.9 % (42-78); TOTAL CELLS COUNTED % (AUTO) 100 %; WHITE BLOOD COUNT 8.9 10^3/uL (4.0-10.5)
[2018-12-21 14:16] LABS: APPEARANCE,URINE CLOUDY; BILIRUBIN,URINE NEGATIVE (NEGATIVE); COLOR,URINE AMBER; GLUCOSE, URINE NEGATIVE (NEGATIVE); KETONES,URINE NEGATIVE (NEGATIVE); PROTEIN,URINE 100 mg/dL (NEGATIVE); URINE SPECIFIC GRAVITY 1.024
--- NOTE | 2018-12-21 14:29 | RADIOLOGY REPORT (SQ) ---
EXAM DESCRIPTION: CT ABD/PELVIS NO ORAL OR IV COMPLETED DATE/TIME: 12/21/2018 2:11 pm REASON FOR STUDY: Increased low back pain COMPARISON: None. TECHNIQUE: CT scan of the abdomen and pelvis performed without intravenous or oral contrast. Images reviewed with lung, soft tissue, and bone windows. Reconstructed coronal and sagittal MPR images revi ewed. All images stored on PACS. All CT scanners at this facility use dose modulation, iterative reconstruction, and/or weight based d osing when appropriate to reduce radiation dose to as low as reasonably achievable (ALARA). [facility]: Dose Right [facility]: CareDose [facility]: Dose Right [facility]: Teradose 4D [facility]: Smart MICMALI RADIATION DOSE: CT Rad equipment meets quality standard of care and radiation dose reduction techniq ues were employed. CTDIvol: 4.8 mGy. DLP: 259 mGy-cm.mGy. LIMITATIONS: None. FINDINGS: LOWER CHEST: No significant findings. No nodules or infiltrates. NON-CONTRASTED LIVER, SPLEEN, ADRENALS: Evaluation limited by lack of IV contrast. No identified sign ificant masses. PANCREAS: No masses. No peripancreatic inflammatory changes. GALLBLADDER: Gallstones are present. RIGHT KIDNEY AND URETER: No suspicious masses. Assessment limited by lack of IV contrast. Nonobstru cting intrarenal calculi are seen. No hydronephrosis or hydroureter. LEFT KIDNEY AND URETER: No suspicious masses. Assessment limited by lack of IV contrast. No signifi cant calcifications. No hydronephrosis or hydroureter. AORTA AND RETROPERITONEUM: No aneurysm. Mesenteric adenopathy is present. BOWEL AND PERITONEAL CAVITY: No obvious masses or inflammatory changes. No free fluid. APPENDIX: Not identified. PELVIS, BLADDER, AND ABDOMINAL WALL:Urinary bladder is not filled. No pelvic mass or fluid collectio n. BONES: Schmorl's node in the superior endplate of S1. OTHER: No other significant finding. IMPRESSION: Cholelithiasis. Mesenteric adenopathy, cannot exclude mesenteric adenitis. Schmorl's n ode in the superior endplate of S1. COMMENT: Quality ID # [id number]: Final reports with documentation of one or more dose reduction techniques (e.g., Automated exposure control, adjustment of the mA and/or kV according to patient size, use of iterative reconstruction technique) TECHNICAL DOCUMENTATION: JOB ID: [id number] [employer]- All Rights Reserved Reading location - IP/workstation name: [email or web address]
[2018-12-21 14:34] LABS: ALKALINE PHOSPHATASE 98 U/L (38-126); ANION GAP 10 (5-19); ASPARTATE AMINO TRANSFERASE 80 U/L (17-59); BILIRUBIN,DIRECT 0.9 mg/dL (0.0-0.4); BILIRUBIN,TOTAL 1.5 mg/dL (0.2-1.3); BLOOD UREA NITROGEN 15 mg/dL (7-20); CALCIUM 9.4 mg/dL (8.4-10.2); CARBON DIOXIDE 25 mmol/L (22-30); CHLORIDE 107 mmol/L (98-107); GLUCOSE 101 mg/dL (75-110); POTASSIUM 4.7 mmol/L (3.6-5.0); TOTAL PROTEIN 8.3 g/dL (6.3-8.2)
[2018-12-21] MEDS ORDERED: TRAMADOL HCL 50 MG TABLET PO ONE (14:45)
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
[2018-12-21] MEDS ORDERED: CEFTRIAXONE INJ 1000 MG VIAL IM ONE (16:44)
[2018-12-21] MEDS ORDERED: LIDOCAINE 1% INJ-PF (10 MG/ML) 30 ML SDV IM ONE (16:44)
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
[2018-12-21 17:35] VITALS: BP 143/92
== END 2018-12-21 17:33 | disposition home or self-care (01) ==
LOC: ER 11:48
DX: N12 Tubulo-interstitial nephritis, not specified as acute or chronic (principal); M54.5 Low back pain; R20.2 Paresthesia of skin; M54.2 Cervicalgia; V49.9XXA Car occupant (driver) (passenger) injured in unspecified traffic accident, initial encounter; R50.9 Fever, unspecified; K80.20 Calculus of gallbladder without cholecystitis without obstruction; R11.0 Nausea; R10.9 Unspecified abdominal pain; Z87.891 Personal history of nicotine dependence
CPT/HCPCS: 36415; 87086; 85025; 87088; 80053; 81001; 72125; 74176; L0120; J3490; J0696; 87186; 96374; 96375; 99284

== ENCOUNTER 2019-11-14 15:13 | Emergency (ER) | payer OTHER ==
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
[2019-11-14 15:58] LABS: ABSOLUTE EOSINOPHILS # (AUTO) 0.4 10^3/uL (0.0-0.6); ABSOLUTE LYMPHOCYTES (AUTO) 1.5 10^3/uL (0.5-4.7); ABSOLUTE MONOCYTES (AUTO) 0.7 10^3/uL (0.1-1.4); BASOPHILS % (AUTO) 0.5 % (0-2); EOSINOPHILS % (AUTO) 8.5 % (0-6); HEMATOCRIT 42.9 % (37.9-51.0); HEMOGLOBIN 14.5 g/dL (13.5-17.0); LYMPHOCYTES % (AUTO) 32.6 % (13-45); MEAN CORPUSCULAR HEMOGLOBIN 30.7 pg (27.0-33.4); MEAN CORPUSCULAR HGB CONC 33.7 g/dL (32.0-36.0); MEAN CORPUSCULAR VOLUME 91 fl (80-97); MONOCYTES % (AUTO) 14.8 % (3-13); PLATELET COUNT 178 10^3/uL (150-450); RED BLOOD COUNT 4.72 10^6/uL (4.35-5.55); RED CELL DISTRIBUTION WIDTH 13.8 % (11.5-14.0); SEGMENTED NEUTROPHILS % (AUTO) 43.6 % (42-78); TOTAL CELLS COUNTED % (AUTO) 100 %; WHITE BLOOD COUNT 4.6 10^3/uL (4.0-10.5)
[2019-11-14 16:20] LABS: ALBUMIN 3.8 g/dL (3.5-5.0); ALKALINE PHOSPHATASE 77 U/L (38-126); ANION GAP 11 (5-19); ASPARTATE AMINO TRANSFERASE 120 U/L (17-59); BILIRUBIN,DIRECT 0.6 mg/dL (0.0-0.4); BLOOD UREA NITROGEN 14 mg/dL (7-20); CALCIUM 8.9 mg/dL (8.4-10.2); CARBON DIOXIDE 23 mmol/L (22-30); CHLORIDE 104 mmol/L (98-107); GLUCOSE 147 mg/dL (75-110); TOTAL PROTEIN 7.4 g/dL (6.3-8.2)
[2019-11-14 16:23] LABS: ALCOHOL < 10 mg/dL (NONE DETECTED)
[2019-11-14] MEDS ORDERED: NALOXONE HCL INJ 2 MG/2 ML DISP.SYRIN IV ONE (16:58)
--- NOTE | 2019-11-14 18:51 | RADIOLOGY REPORT (SQ) ---
EXAM DESCRIPTION: CT HEAD WITHOUT IMAGES COMPLETED DATE/TIME: 11/14/2019 6:29 pm REASON FOR STUDY: overdose COMPARISON: 04/30/2017 TECHNIQUE: Axial images acquired through the brain without intravenous contrast. Images reviewed wit h bone, brain and subdural windows. Images stored on PACS. All CT scanners at this facility use dose modulation, iterative reconstruction, and/or weight based d osing when appropriate to reduce radiation dose to as low as reasonably achievable (ALARA). [facility]: Dose Right [facility]: CareDose [facility]: Dose Right [facility]: Teradose 4D [facility]: Smart Actionality RADIATION DOSE: CT Rad equipment meets quality standard of care and radiation dose reduction techniq ues were employed. CTDIvol: 53.2 mGy. DLP: 964 mGy-cm.. LIMITATIONS: None. FINDINGS: VENTRICLES: Normal size and contour. CEREBRUM: No masses. No hemorrhage. No midline shift. Age appropriate white matter. No evidence for a cute infarction. CEREBELLUM: No masses. No hemorrhage. No alteration of density. No evidence for acute infarction. EXTRA-AXIAL SPACES: No fluid collections. ORBITS AND GLOBE: No intra- or extraconal masses. Normal contour of globe without masses. CALVARIUM: No fracture. PARANASAL SINUSES: Right maxillary mucosal thickening. SOFT TISSUES: No mass or hematoma. OTHER: No other significant finding. IMPRESSION: NO ACUTE INTRACRANIAL FINDINGS. EVIDENCE OF ACUTE STROKE: NO. TECHNICAL DOCUMENTATION: JOB ID: [id number] [place]-72 Quality ID # [id number]: Final reports with documentation of one or more dose reduction techniques (e.g., Au tomated exposure control, adjustment of the mA and/or kV according to patient size, use of iterative reconstruction technique) 2010 [employer]- All Rights Reserved Reading location - IP/workstation name: [email or web address]
[2019-11-14] MEDS ORDERED: LEVOFLOXACIN 750 MG TABLET PO ONE (19:19)
[2019-11-14 19:51] VITALS: BP 88/64
--- NOTE | 2019-11-14 20:16 | EKG REPORT ---
SEVERITY:- NORMAL ECG - SINUS RHYTHM : Confirmed by: Kay Wadsworth MD 14-Nov-2019 20:15:48
== END 2019-11-14 19:48 | disposition left against medical advice (07) ==
LOC: ER 15:13
DX: I95.9 Hypotension, unspecified (principal); T50.901A Poisoning by unspecified drugs, medicaments and biological substances, accidental (unintentional), initial encounter; Z87.891 Personal history of nicotine dependence
CPT/HCPCS: 93005; 99285; 96374; 36415; 80307 ×2; 83735; 85025; 80053; 70450; 93010; J2310

== ENCOUNTER 2020-02-22 12:36 | Emergency (ER) | payer SELFPAY ==
[2020-02-22] MEDS ORDERED: KETOROLAC TROMETHAMINE INJ/PF 30 MG/1 ML SDV IV ONE (13:02)
[2020-02-22] MEDS ORDERED: NORMAL SALINE 1000 ML 1,000 ML IV ONE (13:02)
--- NOTE | 2020-02-22 13:05 | ER Document Report ---
ED General - General Chief Complaint: Shortness Of Breath Stated Complaint: SHORT OF BREATH,HEADACHE Time Seen by Provider: 02/22/20 12:50 Notes: Patient is a 59-year-old male who comes emergency department for chief complaint of weakness, body aches, intermittent headaches, fever, and back pain. Symptoms have been going on for about 3 days. He denies any obvious sick exposures although he came by EMS and tested positive for COVID-19 in route. He also admits to loss of taste and smell. He denies sore throat, neck pain, chest pain, shortness of breath, abdominal pain, vomiting. He states he recently stopped smoking and drinking alcohol frequently. He states he thinks he might have a kidney infection. He denies daily medications, cardiopulmonary history, diabetes, or having a primary care provider. TRAVEL OUTSIDE OF THE [place] IN LAST 30 DAYS: No - Related Data Allergies/Adverse Reactions: No Known Allergies Allergy (Verified 02/22/20 13:40) Past Medical History - General Information source: Patient - Social History Smoking Status: Never Smoker Frequency of alcohol use: None Drug Abuse: None Lives with: Family Family History: Arthritis, CAD, DM, Hyperlipidemia, Hypertension Neurological Medical History: Reports: Hx Migraine Renal/ Medical History: Denies: Hx Peritoneal Dialysis GI Medical History: Reports: Hx Gastroesophageal Reflux Disease Musculoskeletal Medical History: Reports Hx Arthritis, Reports Hx Musculoskeletal Deformity, Reports Hx Musculoskeletal Trauma Traumatic Medical History: Reports: Hx Fractures - clavicle and ankle Past Surgical History: Reports: Hx Abdominal Surgery - hernia repair, Hx Orthopedic Surgery - left ankle - Immunizations Hx Diphtheria, Pertussis, Tetanus Vaccination: Yes Review of Systems - Review of Systems Constitutional: See HPI EENT: No symptoms reported Cardiovascular: No symptoms reported Respiratory: No symptoms reported Gastrointestinal: No symptoms reported Genitourinary: See HPI Male Genitourinary: No symptoms reported Musculoskeletal: See HPI Skin: No symptoms reported Hematologic/Lymphatic: No symptoms reported Neurological/Psychological: See HPI Physical Exam - Vital signs Vitals: Temp Pulse Resp BP Pulse Ox 98.6 F 88 18 118/69 98 02/22/20 12:45 02/22/20 12:45 02/22/20 12:45 02/22/20 12:45 02/22/20 12:45 - Notes Notes: GENERAL: Alert, interacts well. No acute distress. Talkative and well-appearing HEAD: Normocephalic, atraumatic. EYES: Pupils equal, round, and reactive to light. Extraocular movements intact. ENT: Oral mucosa moist, tongue midline. Oropharynx unremarkable. Airway patent. Nares patent, sinuses non-tender, ear canals unremarkable, TM's intact. NECK: Full range of motion. Supple. Trachea midline. No lymphadenopathy. No nuchal rigidity LUNGS: Clear to auscultation bilaterally, no wheezes, rales, or rhonchi. No resp iratory distress. Non-tender chest wall. HEART: Regular rate and rhythm. No murmur ABDOMEN: Soft, non-tender. Non-distended. EXTREMITIES: Moves all 4 extremities spontaneously. No edema, normal radial and dorsalis pedis pulses bilaterally. No cyanosis. BACK: No CVA tenderness. No cervical, thoracic, lumbar midline tenderness. No saddle anesthesia, normal distal neurovascular exam. Moves all extremities in full range of motion. NEUROLOGICAL: Alert and oriented x3. Normal speech. Cranial nerves II through XII grossly intact. Strength 5/5 in all extremities. PSYCH: Normal affect, normal mood. SKIN: Warm, dry, normal turgor. No rashes or lesions noted. Course - Re-evaluation Re-evalutation: Patient looks great. He is positive for COVID-19 and does have very suggestive symptoms of this. However there is no pneumonia on chest x-ray, his vital signs are unremarkable, his laboratory work-up is unremarkable. He has no chest pain or shortness of breath. He has no headache on my evaluation. No nuchal rigidity. Soft benign abdomen. No CVA tenderness. Discussed results with patient. Discussed options, given Decadron, discussed quarantine, follow-up, and return precautions in detail. Patient states appreciation and agreement. Stable and well-appearing at time of discharge. - Vital Signs Vital signs: Temp Pulse Resp BP Pulse Ox 98.6 F 72 18 116/74 99 02/22/20 15:13 02/22/20 15:13 02/22/20 15:13 02/22/20 15:13 02/22/20 15:13 - Laboratory Results Result Diagrams: 02/22/20 13:14 02/22/20 13:14 Laboratory Results Interpreted: 02/22/20 02/22/20 02/22/20 13:14 13:14 13:29 Plt Count 134 L Sodium 136.3 L AST 67 H Urine Protein 30 H Urine Urobilinogen 2.0 H Critical Laboratory Results Reviewed: No Critical Results - Radiology Results Critical Radiology Results Reviewed: No Critical Results Discharge - Discharge Clinical Impression: COVID-19, Body aches, Flank pain Fever Qualifiers: Fever type: unspecified Qualified Code(s): R50.9 - Fever, unspecified Condition: Stable Disposition: HOME, SELF-CARE Additional Instructions: You are positive for COVID-19. Please quarantine for 2 weeks. This is a very contagious virus. Symptoms should gradually go away. I recommend [id number] vitamin C and zinc, Tylenol, ibuprofen, plenty fluids, and rest . You have been treated with dexamethasone to help with your symptoms as well. Return if you worsen including chest pain, difficulty breathing, vomiting, or any other concerning or worsening symptoms.
--- NOTE | 2020-02-22 13:31 | RADIOLOGY REPORT (SQ) ---
EXAM DESCRIPTION: CHEST SINGLE VIEW IMAGES COMPLETED DATE/TIME: 02/22/2020 1:16 pm REASON FOR STUDY: weakness, fever COMPARISON: 12/10/2018. EXAM PARAMETERS: NUMBER OF VIEWS: One view. TECHNIQUE: Single frontal radiographic view of the chest acquired. RADIATION DOSE: NA LIMITATIONS: None. FINDINGS: LUNGS AND PLEURA: No opacities, masses or pneumothorax. No pleural effusion. MEDIASTINUM AND HILAR STRUCTURES: No masses. Contour normal. HEART AND VASCULAR STRUCTURES: Heart normal in size. Normal vasculature. BONES: No acute findings. HARDWARE: None in the chest. OTHER: No other significant finding. IMPRESSION: NO ACUTE RADIOGRAPHIC FINDING IN THE CHEST. TECHNICAL DOCUMENTATION: JOB ID: [id number] 2010 [employer]- All Rights Reserved Reading location - IP/workstation name: [email or web address]
[2020-02-22 13:37] LABS: ABSOLUTE EOSINOPHILS # (AUTO) 0.1 10^3/uL (0.0-0.6); ABSOLUTE LYMPHOCYTES (AUTO) 0.8 10^3/uL (0.5-4.7); ABSOLUTE MONOCYTES (AUTO) 0.4 10^3/uL (0.1-1.4); ABSOLUTE NEUT (AUTO) 2.6 10^3/uL (1.7-8.2); BASOPHILS % (AUTO) 0.6 % (0-2); EOSINOPHILS % (AUTO) 2.5 % (0-6); HEMATOCRIT 43.3 % (37.9-51.0); HEMOGLOBIN 14.9 g/dL (13.5-17.0); LYMPHOCYTES % (AUTO) 21.3 % (13-45); MEAN CORPUSCULAR HEMOGLOBIN 29.6 pg (27.0-33.4); MEAN CORPUSCULAR HGB CONC 34.3 g/dL (32.0-36.0); MEAN CORPUSCULAR VOLUME 86 fl (80-97); MONOCYTES % (AUTO) 10.5 % (3-13); PLATELET COUNT 134 10^3/uL (150-450); RED BLOOD COUNT 5.02 10^6/uL (4.35-5.55); SEGMENTED NEUTROPHILS % (AUTO) 65.1 % (42-78); TOTAL CELLS COUNTED % (AUTO) 100 %
[2020-02-22 13:49] LABS: APPEARANCE,URINE CLEAR; BILIRUBIN,URINE NEGATIVE (NEGATIVE); GLUCOSE, URINE NEGATIVE (NEGATIVE); KETONES,URINE NEGATIVE (NEGATIVE); LEUKOCYTE ESTERASE,URINE NEGATIVE (NEGATIVE); NITRITE,URINE NEGATIVE (NEGATIVE); PROTEIN,URINE 30 mg/dL (NEGATIVE); URINE SPECIFIC GRAVITY 1.025
[2020-02-22 13:53] LABS: COLOR,URINE YELLOW
[2020-02-22 14:01] LABS: ALBUMIN 3.7 g/dL (3.5-5.0); ALKALINE PHOSPHATASE 90 U/L (38-126); ANION GAP 6 (5-19); ASPARTATE AMINO TRANSFERASE 67 U/L (17-59); BILIRUBIN,DIRECT 0.4 mg/dL (0.0-0.4); BILIRUBIN,TOTAL 0.7 mg/dL (0.2-1.3); BLOOD UREA NITROGEN 16 mg/dL (7-20); CALCIUM 9.1 mg/dL (8.4-10.2); CARBON DIOXIDE 27 mmol/L (22-30); CHLORIDE 103 mmol/L (98-107); GLUCOSE 97 mg/dL (75-110); POTASSIUM 4.1 mmol/L (3.6-5.0); TOTAL PROTEIN 7.8 g/dL (6.3-8.2)
[2020-02-22] MEDS ORDERED: DEXAMETHASONE SOD PHOS INJ 10 MG/1 ML VIAL IV ONE (14:39)
[2020-02-22 15:14] VITALS: BP 116/74
== END 2020-02-22 15:08 | disposition home or self-care (01) ==
LOC: ER 12:36
DX: U07.1 COVID-19 (principal); R10.9 Unspecified abdominal pain; R50.9 Fever, unspecified; M79.10 Myalgia, unspecified site; R06.02 Shortness of breath; R51.9 Headache, unspecified; R53.1 Weakness
CPT/HCPCS: 99284; 96361; 96374; 96375; 36415; 87040; 85025; 80053; 81001; 71045; J1885; J7030; J1100